=== PATIENT | male | born 1985 | race Hispanic/Latino ===

== ENCOUNTER 2018-01-05 05:45 | Emergency (ER) | payer BC ==
[2018-01-05 06:51] LABS: Absolute Monocytes 0.8 K/uL (0.1-1.3); Absolute Neutrophil 4.9 K/uL (1.8-8.0); Hematocrit 42.4 % (39.6-49.0); Lymphocytes % 32.8 % (15.3-44.8); MCH 27.6 pg (27.0-35.0); MCV 81.5 fL (80-100); MPV 8.4 fL (7.6-11.3); Monocytes % 8.8 % (3.3-12.3)
[2018-01-05] MEDS ORDERED: ONDANSETRON 4 MG/2 ML VIAL ONE (06:52)
[2018-01-05] MEDS ORDERED: MORPHINE 4 MG/ML SYR ONE (06:52)
[2018-01-05] MEDS ORDERED: NA CHLORIDE 0.9% 1,000 ML ONE (06:52)
[2018-01-05 07:07] LABS: Glomerular Filtration Rate > 60 mL/min (>60)
[2018-01-05 07:08] LABS: Bicarbonate 26 mEq/L (21-31); Glucose Level 293 mg/dL (65-120); Lipase 41 U/L (22-51); Potassium 3.9 mEq/L (3.6-5.0); Sodium Level 136 mEq/L (135-145)
[2018-01-05 07:14] LABS: ALT/SGPT 17 IU/L (10-60); AST/SGOT 15 IU/L (10-42); Albumin 3.7 g/dL (3.2-5.5); Alkaline Phosphatase 55 IU/L (42-121); Amylase Level 72 U/L (28-100); BUN Blood Urea Nitrogen 13 mg/dL (6-20); Bilirubin Direct 0.1 mg/dL (0-0.2); Bilirubin Total 0.6 mg/dL (0.3-1.2); Glomerular Filtration Rate > 90 mL/min (=/>90); Protein, Total 7.3 g/dL (6.0-8.3)
--- NOTE | 2018-01-05 08:10 | RAD REPORT ---
EXAM DESCRIPTION: CT - Stone Protocol - 01/05/2018 7:42 am CLINICAL HISTORY: Abdominal pain. Right sided pain with nausea COMPARISON: 2016 TECHNIQUE: Computed axial tomography of the abdomen pelvis was obtained without oral or IV contrast. Lack of IV and oral contrast limits evaluation of solid organs, bowel, and vessels. Coronal reformat jaime images were obtained and reviewed. All CT scans are performed using dose optimization technique as appropriate and may include automated exposure control or mA/KV adjustment according to patient size. FINDINGS: A renal calculus is not seen. An ureteral calculus is not noted. A bladder calculus is not present. A 4 centimeter fluid collection abuts the pancreatic tail and stomach. Significant peripancreatic str anding is not seen. Spleen liver, adrenals appear grossly normal. There is no evidence of diverticulitis. The appendix appears normal. A small umbilical hernia contain s fat IMPRESSION: Negative for a genitourinary calculus 4 centimeter fluid collection abutting the pancreatic tail and stomach probably represents a pseudocy st. There is no evidence of significant acute pancreatitis
--- NOTE | 2018-01-05 08:29 | ER ---
Nurse's Notes [facility] Name: Obdulio Flynn Age: 32 yrs Sex: Male : 1985 Arrival Date: 01/05/2018 Time: 05:51 Bed 16 Private MD: Evin Mccurdy V Diagnosis: Upper abdominal pain, unspecified Presentation: 01/05 06:00 Presenting complaint: Patient states: "I had right side abdominal pain that started ao about 1600 yesterday but it got worst about midnight." Patient also complains of nausea but denies vomiting or diarrhea. Transition of care: patient was not received from another setting of care. Onset of symptoms was January 04, 2018 at 16:00. Care prior to arrival: None. 06:00 Method Of Arrival: Ambulatory ao 06:00 Acuity: STAR 3 ao Triage Assessment: 06:05 General: Appears in no apparent distress. comfortable, Behavior is calm, cooperative, ao appropriate for age. Pain: Complains of pain in right side flank. EENT: No signs and/or symptoms were reported regarding the EENT system. Neuro: Level of Consciousness is awake, alert, obeys commands, Oriented to person, place, time, situation, Appropriate for age Moves all extremities. Speech is normal, Facial symmetry appears normal. Cardiovascular: Patient's skin is warm and dry. Respiratory: Airway is patent Respiratory effort is even, unlabored, Respiratory pattern is regular, symmetrical. GI: Abdomen is non-distended, Reports nausea, Pain is 3 out of 10 on a pain scale. since yesterday at 1600. : No signs and/or symptoms were reported regarding the genitourinary system. Derm: No signs and/or symptoms reported regarding the dermatologic system. Derm: Skin is intact, Skin is normal, Skin temperature is warm. Musculoskeletal: Range of motion: intact in all extremities. Historical: - Allergies: 06:05 NKA; ao - Home Meds: 06:05 fenofibrate Oral [Active]; Basaglar-insulin [Active]; Lantus subcutaneous 38 units QD ao Sub-Q [Active]; lisinopril 5 mg oral tab [Active]; Synjardy oral oral [Active]; - PMHx: 06:05 Diabetes - IDDM; Hypertension; Kidney stones; Pancreatitis; ao - PSHx: 06:05 Cholecystectomy; ao - Immunization history:: Adult Immunizations up to date. - Social history:: Smoking status: Patient uses tobacco products, denies chronic smoking, but will smoke occasionally, Patient uses alcohol, occasionally. only on a social basis. Patient/guardian denies using street drugs. Screenin:08 Abuse screen: Denies threats or abuse. Denies injuries from another. Nutritional ao screening: No deficits noted. Tuberculosis screening: No symptoms or risk factors identified. Fall Risk None identified. Assessment: 06:08 General: See triage note. ao 07:00 General: Appears in no apparent distress. comfortable, Behavior is calm, cooperative, rb1 Denies fever. Pain: Complains of pain in right flank Pain currently is 2 out of 10 on a pain scale. Neuro: Level of Consciousness is awake, alert, obeys commands, Oriented to person, place, time, situation. Cardiovascular: Capillary refill < 3 seconds is brisk in bilateral fingers. Respiratory: Airway is patent Respiratory effort is even, unlabored, Respiratory pattern is regular, symmetrical. GI: No signs and/or symptoms were reported involving the gastrointestinal system. : No signs and/or symptoms were reported regarding the genitourinary system. Derm: Skin is dry, Skin is normal, Skin temperature is warm. 08:00 Reassessment: Patient appears in no apparent distress at this time. Patient and/or rb1 family updated on plan of care and expected duration. Pain level reassessed. Patient is alert, oriented x 3, equal unlabored respirations, skin warm/dry/pink. 08:30 Reassessment: Patient appears in no apparent distress at this time. Patient and/or rb1 family updated on plan of care and expected duration. Pain level reassessed. Patient is alert, oriented x 3, equal unlabored respirations, skin warm/dry/pink. pt. tolerated PO challenge well. Patient states feeling better. Vital Signs: 06:02 BP 115 / 78; Pulse 81; Resp 16; Temp 97.2(TE); Pulse Ox 98% on R/A; Weight 113.4 kg ao (R); Height 5 ft. 9 in. (175.26 cm) (R); Pain 3/10; 07:00 BP 119 / 82; Pulse 74; Resp 17; Pulse Ox 98% on R/A; rb1 08:00 BP 113 / 71; Pulse 73; Resp 18; Pulse Ox 99% on R/A; rb1 08:46 BP 112 / 69; Pulse 80; Resp 17; Pulse Ox 99% on R/A; Pain 2/10; rb1 06:02 Body Mass Index 36.92 (113.40 kg, 175.26 cm) ao ED Course: 05:51 Patient arrived in ED. es 05:51 Evin Mccurdy MD is Private Physician. es 06:00 Grant Morris, RN is Primary Nurse. ao 06:02 Triage completed. ao 06:02 Arm band placed on right wrist. Patient placed in an exam room, Patient notified of ao wait time. 06:08 Patient has correct armband on for positive identification. Pulse ox on. NIBP on. ao 06:22 Uvaldo Chang PA is PHCP. cp 06:23 Shaji Orozco MD is Attending Physician. cp 06:40 Inserted saline lock: 22 gauge in left antecubital area, using aseptic technique. Blood mt collected. 07:06 Report given to DOT Perez. ao 07:12 Ana Tom RN is Primary Nurse. rb1 07:41 CT completed. Patient tolerated procedure well. Patient moved to CT via wheelchair. sj Patient moved back from CT. 07:42 CT Stone Protocol In Process Unspecified. EDMS 08:27 Byron Zazueta MD is Referral Physician. cp 08:47 No provider procedures requiring assistance completed. IV discontinued, intact, rb1 bleeding controlled, No redness/swelling at site. Pressure dressing applied. Administered Medications: 06:38 Drug: Zofran 4 mg Route: IVP; Site: left antecubital; ao 07:00 Follow up: Response: No adverse reaction; Nausea is decreased rb1 06:42 Drug: morphine 4 mg Route: IVP; Site: left antecubital; ao 07:00 Follow up: Response: No adverse reaction; Pain is decreased rb1 06:42 Drug: NS 0.9% 1000 ml Route: IV; Rate: 1 bolus; Site: left antecubital; ao 07:47 Follow up: IV Status: Completed infusion rb1 08:35 Drug: Promethazine 25 mg Route: IVP; Site: left antecubital; rb1 08:47 Follow up: Response: No adverse reaction rb1 Outcome: 08:28 Discharge ordered by . cp 08:47 Discharged to home ambulatory. rb1 08:47 Condition: stable 08:47 Discharge instructions given to patient, Instructed on discharge instructions, follow up and referral plans. medication usage, Demonstrated understanding of instructions, follow-up care, medications, Prescriptions given X 3. 08:47 Patient left the ED. rb1 Signatures: Dispatcher [employer] EDAlissa Lopez Susan sj Page, Corey, PA PA cp Barber, Rebecca, RN RN rb1 Grant Morris RN RN ao Thompson, [place] Corrections: (The following items were deleted from the chart) 08:51 08:48 Patient left the ED. rb1 rb1
--- NOTE | 2018-01-05 08:29 | EDPHYS ---
Physician Documentation [facility] Name: Obdulio Flynn Age: 32 yrs Sex: Male : 1985 Arrival Date: 01/05/2018 Time: 05:51 Bed 16 Private MD: Evin Mccurdy V ED Physician Shaji Orozco HPI: 01/05 06:29 This 32 yrs old Male presents to ER via Ambulatory with complaints of Flank cp Pain. 06:30 The patient presents with abdominal pain in the right upper quadrant. Onset: The cp symptoms/episode began/occurred yesterday. The symptoms radiate to the right flank. Associated signs and symptoms: Pertinent positives: nausea, Pertinent negatives: chest pain, constipation, diarrhea, vomiting. Historical: - Allergies: 06:05 NKA; ao - Home Meds: 06:05 fenofibrate Oral [Active]; Basaglar-insulin [Active]; Lantus subcutaneous 38 units QD ao Sub-Q [Active]; lisinopril 5 mg oral tab [Active]; Synjardy oral oral [Active]; - PMHx: 06:05 Diabetes - IDDM; Hypertension; Kidney stones; Pancreatitis; ao - PSHx: 06:05 Cholecystectomy; ao - Immunization history:: Adult Immunizations up to date. - Social history:: Smoking status: Patient uses tobacco products, denies chronic smoking, but will smoke occasionally, Patient uses alcohol, occasionally. only on a social basis. Patient/guardian denies using street drugs. ROS: 06:35 Constitutional: Negative for body aches, chills, fever, poor PO intake. cp 06:35 Eyes: Negative for injury, pain, redness, and discharge, ENT: Negative for injury, cp pain, and discharge, Cardiovascular: Negative for chest pain, palpitations, and edema, Respiratory: Negative for shortness of breath, cough, wheezing, and pleuritic chest pain. 06:35 Abdomen/GI: Positive for abdominal pain, nausea, of the anterior aspect of right lateral abdomen and right upper quadrant, Negative for vomiting, diarrhea, constipation, anorexia. 06:35 Back: Positive for radiated pain, of the right mid back. 06:35 : Negative for urinary symptoms, testicular pain 06:35 Skin: Negative for cellulitis, rash. 06:35 Neuro: Negative for altered mental status, headache, weakness. 06:35 All other systems are negative. Exam: 06:42 Constitutional: The patient appears in no acute distress, alert, awake, non-toxic, well cp developed, well nourished. 06:42 Head/Face: Normocephalic, atraumatic. cp 06:42 Eyes: Periorbital structures: appear normal, Conjunctiva: normal, no exudate, no injection, Sclera: no appreciated abnormality, Lids and lashes: appear normal, bilaterally. 06:42 ENT: External ear(s): are unremarkable, Nose: is normal, Mouth: Lips: moist, Oral mucosa: moist, Posterior pharynx: is normal, airway is patent, no erythema, no exudate, Voice: is normal. 06:42 Chest/axilla: Inspection: normal, Palpation: is normal, no crepitus, no tenderness. 06:42 Cardiovascular: Rate: normal, Rhythm: regular. 06:42 Respiratory: the patient does not display signs of respiratory distress, Respirations: normal, no use of accessory muscles, no retractions, no splinting, no tachypnea, labored breathing, is not present, Breath sounds: are clear throughout, no decreased breath sounds, no stridor, no wheezing. 06:42 Abdomen/GI: Inspection: abdomen appears normal, Bowel sounds: active, all quadrants, Palpation: soft, in all quadrants, moderate abdominal tenderness, in the anterior aspect of right lateral abdomen and right upper quadrant, rebound tenderness, is not appreciated, voluntary guarding, is not appreciated, involuntary guarding, is not appreciated. 06:42 Back: pain, of the right mid back, ROM is normal. 06:42 Skin: cellulitis, is not appreciated, no rash present. Vital Signs: 06:02 BP 115 / 78; Pulse 81; Resp 16; Temp 97.2(TE); Pulse Ox 98% on R/A; Weight 113.4 kg ao (R); Height 5 ft. 9 in. (175.26 cm) (R); Pain 3/10; 07:00 BP 119 / 82; Pulse 74; Resp 17; Pulse Ox 98% on R/A; rb1 08:00 BP 113 / 71; Pulse 73; Resp 18; Pulse Ox 99% on R/A; rb1 08:46 BP 112 / 69; Pulse 80; Resp 17; Pulse Ox 99% on R/A; Pain 2/10; rb1 06:02 Body Mass Index 36.92 (113.40 kg, 175.26 cm) ao MDM: 06:23 Patient medically screened. cp 07:00 Differential diagnosis: diverticulitis, gastritis, non-specific abd pain, pancreatitis, cp Peptic Ulcer Disease, Perf. Duodenal Ulcer, Perf. Gastric Ulcer, Pyelonephritis, Ureterolithiasis, urinary tract infection. 08:25 Data reviewed: vital signs, nurses notes, lab test result(s), radiologic studies, CT cp scan. 08:25 Counseling: I had a detailed discussion with the patient and/or guardian regarding: the cp historical points, exam findings, and any diagnostic results supporting the discharge/admit diagnosis, lab results, radiology results, the need for outpatient follow up, a it infrastructure architect, to return to the emergency department if symptoms worsen or persist or if there are any questions or concerns that arise at home. Response to treatment: the patient's symptoms have mildly improved after treatment, and as a result, I will discharge patient. 08:25 ED course: VSS. Discussed CT results that showed 4 cm collection of fluid near cp pancreatic tail. Will refer to GI for f/u. 01/05 06:28 Order name: Amylase, Serum; Complete Time: 07:18 cp 01/05 06:28 Order name: Basic Metabolic Panel; Complete Time: 07:18 cp 01/05 07:18 Interpretation: Normal except: GLUC 293. cp 01/05 06:28 Order name: CBC with Diff; Complete Time: 07:18 cp 01/05 08:12 Interpretation: Reviewed. cp 01/05 06:28 Order name: Creatinine for Radiology; Complete Time: 07:18 cp 01/05 06:28 Order name: Hepatic Function; Complete Time: 07:18 cp 01/05 07:18 Interpretation: Normal except: GLOB 3.6; A/G 1.0. cp 01/05 06:28 Order name: Lipase; Complete Time: 07:18 cp 01/05 08:15 Interpretation: LIP 41; Reviewed. cp 01/05 06:28 Order name: Urine Microscopic Only; Complete Time: 00:20 cp 01/05 06:28 Order name: IV Saline Lock; Complete Time: 06:43 cp 01/05 06:28 Order name: CT Stone Protocol; Complete Time: 08:11 cp 01/05 08:08 Order name: Urine Dipstick--Ancillary (enter results); Complete Time: 00:20 bd 01/05 06:28 Order name: Labs collected and sent; Complete Time: 06:43 cp 01/05 06:28 Order name: Urine Dipstick-Ancillary (obtain specimen); Complete Time: 08:51 cp 01/05 08:15 Order name: PO challenge; Complete Time: 08:49 cp Administered Medications: 06:38 Drug: Zofran 4 mg Route: IVP; Site: left antecubital; ao 07:00 Follow up: Response: No adverse reaction; Nausea is decreased rb1 06:42 Drug: morphine 4 mg Route: IVP; Site: left antecubital; ao 07:00 Follow up: Response: No adverse reaction; Pain is decreased rb1 06:42 Drug: NS 0.9% 1000 ml Route: IV; Rate: 1 bolus; Site: left antecubital; ao 07:47 Follow up: IV Status: Completed infusion rb1 08:35 Drug: Promethazine 25 mg Route: IVP; Site: left antecubital; rb1 08:47 Follow up: Response: No adverse reaction rb1 Disposition: 13:21 Co-signature as Attending Physician, Shaji Orozco MD. Disposition: 01/05/18 08:28 Discharged to Home. Impression: Upper abdominal pain, unspecified. - Condition is Stable. - Discharge Instructions: Abdominal Pain, Adult. - Prescriptions for Protonix 40 mg Oral Tablet - take 1 tablet by ORAL route once daily; 30 tablet. Zofran 4 mg Oral Tablet - take 1 tablet by ORAL route every 12 hours As needed; 20 tablet. Tramadol 50 mg Oral Tablet - take 1 tablet by ORAL route every 8 hours as needed; 15 tablet. - Medication Reconciliation Form, Thank You Letter, Antibiotic Education, Prescription Opioid Use form. - Follow up: Byron Zazueta MD; When: 1 - 2 days; Reason: Recheck today's complaints. - Problem is new. - Symptoms have improved. Signatures: Dispatcher [employer] EDMS Uvaldo Chang PA PA cp Barber, Rebecca, RN RN rb1 Grant Morris RN Shaji Lawson MD MD
[2018-01-05 08:34] LABS: Urine Bacteria NONE SEEN /HPF (NONE SEEN); Urine Culture Reflex Order NOT NEEDED; Urine RBC <5 /HPF (NONE SEEN)
[2018-01-05] MEDS ORDERED: PROMETHAZINE 25 MG/ML VIAL ONE (08:56)
[2018-01-05 09:01] VITALS: TEMP 97.2
[2018-01-05 09:03] VITALS: O2SAT 99
[2018-01-05 09:05] VITALS: BP 112/69
[2018-01-05 09:36] LABS: Urine Blood NEGATIVE (NEG); Urine Glucose 2+ (NEG); Urine Protein NEGATIVE (NEG); Urine Specific Gravity 1.025 (1.005-1.030); Urine pH 5.5 (5.0-7.0)
== END 2018-01-05 08:48 | disposition home or self-care (01) ==
LOC: ER 05:45
DX: R10.10 Upper abdominal pain, unspecified (principal); I10 Essential (primary) hypertension; E11.9 Type 2 diabetes mellitus without complications; Z79.4 Long term (current) use of insulin
CPT/HCPCS: 36415; 74176; 76377; 80048; 80076; 81003; 81015; 82150; 83690; 85025; 96361; 96374; 96375; 99284; J2405; J2550; J7030

== ENCOUNTER 2018-01-14 08:56 | Emergency (ER) | payer BC ==
[2018-01-14 09:44] LABS: Absolute Lymphocytes (CBC) 2.2 K/uL (0.7-4.9); Absolute Monocytes 0.7 K/uL (0.1-1.3); Absolute Neutrophil 4.8 K/uL (1.8-8.0); Basophils % 0.9 % (0-1.3); Eosinophils % 2.5 % (0-4.4); Lymphocytes % 27.5 % (15.3-44.8); MCH 27.4 pg (27.0-35.0); MCV 81.8 fL (80-100); MPV 8.7 fL (7.6-11.3); Monocytes % 8.2 % (3.3-12.3); RBC Red Blood Cell Count 5.87 M/uL (4.33-5.43)
[2018-01-14 09:52] LABS: Glucose Level 285 mg/dL (65-120); Lipase 15 U/L (22-51)
[2018-01-14 09:58] LABS: Albumin 4.1 g/dL (3.2-5.5); Alkaline Phosphatase 58 IU/L (42-121); BUN Blood Urea Nitrogen 15 mg/dL (6-20); Bilirubin Direct 0.1 mg/dL (0-0.2); Bilirubin Total 0.5 mg/dL (0.3-1.2); Protein, Total 8.2 g/dL (6.0-8.3)
[2018-01-14 10:01] LABS: ALT/SGPT 15 IU/L (10-60); AST/SGOT 18 IU/L (10-42); Amylase Level 90 U/L (28-100); Bicarbonate 28 mEq/L (21-31); Potassium 4.3 mEq/L (3.6-5.0); Sodium Level 132 mEq/L (135-145)
[2018-01-14] MEDS ORDERED: NA CHLORIDE 0.9% 1,000 ML ONE (10:04)
[2018-01-14] MEDS ORDERED: PANTOPRAZOLE 40 MG INJ ONE (10:04)
[2018-01-14] MEDS ORDERED: ONDANSETRON 4 MG/2 ML VIAL ONE (10:04)
--- NOTE | 2018-01-14 10:25 | ER ---
Nurse's Notes [facility] Name: Obdulio Flynn Age: 32 yrs Sex: Male : 1985 Arrival Date: 01/14/2018 Time: 08:59 Bed 20 Private MD: Evin Mccurdy V Diagnosis: Upper abdominal pain, unspecified;Gastro-esophageal reflux disease Presentation: 01/14 09:06 Presenting complaint: Patient states: Intermittent sharp upper abdominal pain and hb nausea x 3 days. Hx pancreatitis. Had labs drawn here this morning for Dr. Wilson. Transition of care: patient was not received from another setting of care. Onset of symptoms is unknown. Care prior to arrival: None. 09:06 Method Of Arrival: Ambulatory hb 09:06 Acuity: STAR 3 hb Historical: - Allergies: 09:09 NKA; hb - Home Meds: 09:09 Basaglar-insulin [Active]; Lantus subcutaneous 38 units QD Sub-Q [Active]; fenofibrate hb Oral [Active]; Synjardy Oral [Active]; lisinopril 5 mg Oral tab [Active]; - PMHx: 09:09 Diabetes - IDDM; Hypertension; Kidney stones; Pancreatitis; hb - PSHx: 09:09 Cholecystectomy; Kidney stents; hb - Immunization history:: Adult Immunizations up to date. - Social history:: Smoking status: Patient/guardian denies using tobacco. Screenin:05 Abuse screen: Denies threats or abuse. Denies injuries from another. Nutritional ss screening: No deficits noted. Tuberculosis screening: Never had TB. Fall Risk None identified. Assessment: 10:05 General: Appears in no apparent distress. comfortable, Behavior is calm, cooperative, ss Denies fever, feeling ill, fatigue, chills. Pain: Complains of pain in left upper quadrant and right upper quadrant and epigastric area Pain currently is 4 out of 10 on a pain scale. Quality of pain is described as burning, Is intermittent. Neuro: Level of Consciousness is awake, alert, obeys commands, Oriented to person, place, time, situation. Cardiovascular: Capillary refill < 3 seconds is brisk in bilateral fingers Patient's skin is warm and dry. Respiratory: Airway is patent Respiratory effort is even, unlabored, Respiratory pattern is regular, symmetrical. GI: Bowel sounds present X 4 quads. Abd is soft and non tender X 4 quads. Patient currently denies diarrhea, vomiting. : No signs and/or symptoms were reported regarding the genitourinary system. EENT: Oral mucosa is moist. Throat is clear. Derm: Skin is intact, is healthy with good turgor, Skin is dry, Skin is pink, warm \T\ dry. Musculoskeletal: Circulation, motion, and sensation intact. Range of motion: intact in all extremities. Vital Signs: 09:06 BP 123 / 91; Pulse 86; Resp 16; Temp 98(O); Pulse Ox 100% on R/A; Pain 4/10; hb 10:32 BP 126 / 86; Pulse 82; Resp 16; Pulse Ox 99% on R/A; Pain 2/10; hb ED Course: 08:59 Patient arrived in ED. as 08:59 Evin Mccurdy MD is Private Physician. as 09:02 Ramonita Colmenares FNP-C [facility]. kb 09:02 Italo Saxena MD is Attending Physician. kb 09:06 Arm band placed on right wrist. hb 09:08 Triage completed. hb 09:35 Initial lab(s) drawn, by me, sent to lab. Inserted saline lock: 20 gauge in right ag antecubital area, using aseptic technique. Blood collected. 10:05 Patient has correct armband on for positive identification. Bed in low position. Call ss light in reach. 10:12 Bambi Bustillos, RN is Primary Nurse. ss 10:30 No provider procedures requiring assistance completed. ss 10:33 intact, bleeding controlled, No redness/swelling at site. Pressure dressing applied. hb Administered Medications: 10:08 Drug: NS 0.9% 1000 ml Route: IV; Rate: 1000 ml; Site: right antecubital; ss 10:30 Follow up: IV Status: IV converted to saline lock ss 10:10 Drug: Zofran 4 mg Route: IVP; Site: right antecubital; ss 15:48 Follow up: Response: No adverse reaction ss 10:12 Drug: ProTONIX 40 mg Route: IVP; Site: right antecubital; ss 10:45 Follow up: Response: No adverse reaction ss Point of Care Testing: Blood Glucose: 09:25 Blood Glucose: 264 mg/dL; ss Ranges: Outcome: 10:24 Discharge ordered by . kb 10:33 Discharged to home ambulatory. hb 10:33 Condition: stable 10:33 Discharge instructions given to patient, Instructed on discharge instructions, follow up and referral plans. medication usage, Demonstrated understanding of instructions, follow-up care, medications, Prescriptions given X 2. 10:33 Patient left the ED. hb Signatures: Ramonita Colmenares, CONDENSER TESTER-C TJ-Kaitlyn Mejia Shelby, DOT RN Anne-Marie Ivey Heather, RN RN hb
--- NOTE | 2018-01-14 10:25 | EDPHYS ---
Physician Documentation [facility] Name: Obdulio Flynn Age: 32 yrs Sex: Male : 1985 Arrival Date: 01/14/2018 Time: 08:59 Bed 20 Private MD: Evin Mccurdy V ED Physician Italo Saxena HPI: 01/14 09:34 This 32 yrs old Male presents to ER via Ambulatory with complaints of kb Abdominal Pain, Nausea, Dizziness. 09:37 The patient presents with abdominal pain in the upper abdomen. Onset: The kb symptoms/episode began/occurred 3 day(s) ago. The symptoms do not radiate. Associated signs and symptoms: Pertinent positives: nausea. The symptoms are described as achy. Modifying factors: The symptoms are alleviated by nothing, the symptoms are aggravated by pressure. Severity of pain: At its worst the pain was mild moderate in the emergency department the pain is unchanged. The patient has experienced a previous episode. The patient has been recently seen by a physician: Dr. Wilson 2 day(s) ago, with similar presenting complaints, lab tests were done. Historical: - Allergies: 09:09 NKA; hb - Home Meds: 09:09 Basaglar-insulin [Active]; Lantus subcutaneous 38 units QD Sub-Q [Active]; fenofibrate hb Oral [Active]; Synjardy Oral [Active]; lisinopril 5 mg Oral tab [Active]; - PMHx: 09:09 Diabetes - IDDM; Hypertension; Kidney stones; Pancreatitis; hb - PSHx: 09:09 Cholecystectomy; Kidney stents; hb - Immunization history:: Adult Immunizations up to date. - Social history:: Smoking status: Patient/guardian denies using tobacco. ROS: 09:35 Constitutional: Negative for fever, chills, and weight loss, Cardiovascular: Negative kb for chest pain, palpitations, and edema, Respiratory: Negative for shortness of breath, cough, wheezing, and pleuritic chest pain, Back: Negative for injury and pain, : Negative for injury, bleeding, discharge, and swelling, MS/Extremity: Negative for injury and deformity, Skin: Negative for injury, rash, and discoloration, Neuro: Negative for headache, weakness, numbness, tingling, and seizure. 09:36 Abdomen/GI: Positive for abdominal pain, nausea, Negative for vomiting, diarrhea, kb constipation, abdominal cramps, abdominal distension, anorexia. Exam: 09:35 Constitutional: This is a well developed, well nourished patient who is awake, alert, kb and in no acute distress. Head/Face: Normocephalic, atraumatic. Chest/axilla: Normal chest wall appearance and motion. Nontender with no deformity. No lesions are appreciated. Cardiovascular: Regular rate and rhythm with a normal S1 and S2. No gallops, murmurs, or rubs. Normal PMI, no JVD. No pulse deficits. Respiratory: Lungs have equal breath sounds bilaterally, clear to auscultation and percussion. No rales, rhonchi or wheezes noted. No increased work of breathing, no retractions or nasal flaring. Back: No spinal tenderness. No costovertebral tenderness. Full range of motion. Skin: Warm, dry with normal turgor. Normal color with no rashes, no lesions, and no evidence of cellulitis. MS/ Extremity: Pulses equal, no cyanosis. Neurovascular intact. Full, normal range of motion. Neuro: Awake and alert, GCS 15, oriented to person, place, time, and situation. Cranial nerves II-XII grossly intact. Motor strength 5/5 in all extremities. Sensory grossly intact. Cerebellar exam normal. Normal gait. 09:36 Abdomen/GI: Inspection: abdomen appears normal, Bowel sounds: normal, in all quadrants, kb Palpation: soft, in all quadrants, moderate abdominal tenderness, in the epigastric area, right upper quadrant and left upper quadrant. Vital Signs: 09:06 BP 123 / 91; Pulse 86; Resp 16; Temp 98(O); Pulse Ox 100% on R/A; Pain 4/10; hb 10:32 BP 126 / 86; Pulse 82; Resp 16; Pulse Ox 99% on R/A; Pain 2/10; hb MDM: 09:05 Patient medically screened. kb 09:35 Data reviewed: vital signs, nurses notes. Data interpreted: Pulse oximetry: on room air kb is 100 %. Interpretation: normal. 10:20 Counseling: I had a detailed discussion with the patient and/or guardian regarding: the kb historical points, exam findings, and any diagnostic results supporting the discharge/admit diagnosis, lab results, the need for outpatient follow up, a family practitioner, a senior technical architect, to return to the emergency department if symptoms worsen or persist or if there are any questions or concerns that arise at home. 01/14 09:15 Order name: Amylase, Serum; Complete Time: 10:08 kb 01/14 09:15 Order name: Basic Metabolic Panel; Complete Time: 10:08 kb 01/14 09:15 Order name: CBC with Diff; Complete Time: 09:50 kb 01/14 09:15 Order name: Hepatic Function; Complete Time: 10:08 kb 01/14 09:15 Order name: Lipase; Complete Time: 10:08 kb 01/14 09:15 Order name: IV Saline Lock; Complete Time: 10:13 kb 01/14 09:15 Order name: Labs collected and sent; Complete Time: 10:13 kb Administered Medications: 10:08 Drug: NS 0.9% 1000 ml Route: IV; Rate: 1000 ml; Site: right antecubital; ss 10:30 Follow up: IV Status: IV converted to saline lock ss 10:10 Drug: Zofran 4 mg Route: IVP; Site: right antecubital; ss 15:48 Follow up: Response: No adverse reaction ss 10:12 Drug: ProTONIX 40 mg Route: IVP; Site: right antecubital; ss 10:45 Follow up: Response: No adverse reaction ss Point of Care Testing: Blood Glucose: 09:25 Blood Glucose: 264 mg/dL; ss Ranges: Critical Glucose Levels:Adult <50 mg/dl or >400 mg/dl <40 mg/dl or >180 mg/dl Disposition: 01/15 07:53 Co-signature as Attending Physician, Italo Saxena MD I agree with the assessment and wa plan of care. Disposition: 01/14/18 10:24 Discharged to Home. Impression: Upper abdominal pain, unspecified, Gastro-esophageal reflux disease. - Condition is Stable. - Discharge Instructions: Gastroesophageal Reflux Disease, Adult, Abdominal Pain, Adult, [id number]. - Prescriptions for Protonix 40 mg Oral Tablet - take 1 tablet by ORAL route once daily; 30 tablet. Zofran 4 mg Oral Tablet - take 1 tablet by ORAL route every 6 hours As needed; 20 tablet. - Medication Reconciliation Form, Thank You Letter, Antibiotic Education, Prescription Opioid Use form. - Follow up: Emergency Department; When: As needed; Reason: Worsening of condition. Follow up: Private Physician; When: 2 - 3 days; Reason: Recheck today's complaints, Continuance of care, Re-evaluation by your physician. Signatures: Dispatcher [employer] EDMS Ramonita Colmenares, FLAKO FILAMENT CUTTER-Bambi Weiss RN RN ss Baxter, Heather, RN RN Italo Saxena MD MD wa Corrections: (The following items were deleted from the chart) 01/14 09:36 09:35 Constitutional: Negative for fever, chills, and weight loss, Cardiovascular: kb Negative for chest pain, palpitations, and edema, Respiratory: Negative for shortness of breath, cough, wheezing, and pleuritic chest pain, Back: Negative for injury and pain, : Negative for injury, bleeding, discharge, and swelling, MS/Extremity: Negative for injury and deformity, kb 09:36 09:35 Abdomen/GI: Positive for abdominal pain, nausea and vomiting, Negative for kb diarrhea, constipation, abdominal cramps, abdominal distension, anorexia, kb 09:36 09:35 Neuro: Positive for dizziness, Negative for altered mental status, gait kb disturbance, headache, hearing loss, loss of consciousness, numbness, seizure activity, speech changes, syncope, near syncope, tingling, tinnitus, tremor, visual changes, weakness, kb 09:37 09:35 Head/Face: Normocephalic, atraumatic. Chest/axilla: Normal chest wall appearance kb and motion. Nontender with no deformity. No lesions are appreciated. Cardiovascular: Regular rate and rhythm with a normal S1 and S2. No gallops, murmurs, or rubs. Normal PMI, no JVD. No pulse deficits. Respiratory: Lungs have equal breath sounds bilaterally, clear to auscultation and percussion. No rales, rhonchi or wheezes noted. No increased work of breathing, no retractions or nasal flaring. Abdomen/GI: Soft, non-tender, with normal bowel sounds. No distension or tympany. No guarding or rebound. No evidence of tenderness throughout. Back: No spinal tenderness. No costovertebral tenderness. Full range of motion. Skin: Warm, dry with normal turgor. Normal color with no rashes, no lesions, and no evidence of cellulitis. MS/ Extremity: Pulses equal, no cyanosis. Neurovascular intact. Full, normal range of motion. Neuro: Awake and alert, GCS 15, oriented to person, place, time, and situation. Cranial nerves II-XII grossly intact. Motor strength 5/5 in all extremities. Sensory grossly intact. Cerebellar exam normal. Normal gait. kb 09:37 09:35 Constitutional: The patient appears alert, awake, pale, kb kb
[2018-01-14 10:44] VITALS: BP 126/86; O2SAT 99
[2018-01-14 10:45] VITALS: TEMP 98
== END 2018-01-14 10:33 | disposition home or self-care (01) ==
LOC: ER 08:56
DX: K21.9 Gastro-esophageal reflux disease without esophagitis (principal); I10 Essential (primary) hypertension; E11.9 Type 2 diabetes mellitus without complications; Z79.4 Long term (current) use of insulin
CPT/HCPCS: 36415; 80048; 80076; 82150; 82962; 83690; 85025; 96374; 96375; 99284; C9113; J2405; J7030

== ENCOUNTER 2018-02-16 22:57 | Emergency (ER) | payer BC ==
--- NOTE | 2018-02-16 23:40 | ER ---
Nurse's Notes [facility] Name: Obdulio Flynn Age: 33 yrs Sex: Male : 1985 Arrival Date: 02/16/2018 Time: 23:01 Bed 6 Private MD: Evin Mccurdy V Diagnosis: Impetigo, unspecified;Rash and other nonspecific skin eruption Presentation: 02/16 23:10 Presenting complaint: Patient states: he has a rash under both arms worse on the right bb which is getting more painful pt is diabetic. Transition of care: patient was not received from another setting of care. Onset of symptoms was February 16, 2018. Initial Sepsis Screen: Does the patient meet any 2 criteria? No. Patient's initial sepsis screen is negative. Does the patient have a suspected source of infection? No. Patient's initial sepsis screen is negative. Care prior to arrival: None. 23:10 Method Of Arrival: Ambulatory bb 23:10 Acuity: STAR 4 bb Historical: - Allergies: 23:13 NKA; bb - Home Meds: 23:13 Basaglar-insulin [Active]; fenofibrate 150 mg oral cap 1 cap once daily [Active]; bb lisinopril 5 mg Oral tab 1 tab once daily [Active]; Synjardy 12.5-1,000 mg oral tab 1 tab daily [Active]; - PMHx: 23:13 Diabetes - IDDM; Hypertension; Kidney stones; Pancreatitis; bb - PSHx: 23:13 Cholecystectomy; Kidney stents; bb - Immunization history:: Adult Immunizations up to date. - Social history:: Smoking status: Patient uses tobacco products, denies chronic smoking, but will smoke occasionally, Patient uses alcohol, occasionally. Screenin:38 Abuse screen: Denies threats or abuse. Nutritional screening: No deficits noted. jd3 Tuberculosis screening: No symptoms or risk factors identified. Fall Risk None identified. Assessment: 23:31 General: Appears in no apparent distress. uncomfortable, Behavior is calm, cooperative, jd3 appropriate for age. Pain: Complains of pain in right axilla and left axilla Pain currently is 9 out of 10 on a pain scale. Quality of pain is described as sharp, tender, stinging, Pain began 2-3 days ago. Is continuous, Aggravated by repositioning. Neuro: Level of Consciousness is awake, alert, obeys commands, Oriented to person, place, time, situation. Cardiovascular: Heart tones S1 S2 present Capillary refill < 3 seconds Patient's skin is warm and dry. Respiratory: Airway is patent Respiratory effort is even, unlabored, Respiratory pattern is regular, symmetrical, Breath sounds are clear bilaterally. GI: Abdomen is round Bowel sounds present X 4 quads. Abd is soft and non tender X 4 quads. Reports nausea. : No signs and/or symptoms were reported regarding the genitourinary system. EENT: No signs and/or symptoms were reported regarding the EENT system. Derm: Skin is intact, Skin is dry, Skin is normal, Skin temperature is warm Wound noted right axilla and left axilla Wound is silver dollar sized area of raised, red, painful tissue under both arms. Musculoskeletal: Circulation, motion, and sensation intact. Range of motion: intact in all extremities. 23:54 Reassessment: Patient appears in no apparent distress at this time. Patient and/or jd3 family updated on plan of care and expected duration. Pain level reassessed. Patient is alert, oriented x 3, equal unlabored respirations, skin warm/dry/pink. pt waiting for shot time before discharge. 02/17 00:07 Reassessment: Patient appears in no apparent distress at this time. Patient and/or jd3 family updated on plan of care and expected duration. Pain level reassessed. Patient is alert, oriented x 3, equal unlabored respirations, skin warm/dry/pink. pt reported understanding of discharge instructions, even and steady gait upon discharge. Vital Signs: 02/16 23:13 BP 120 / 88; Pulse 93; Resp 18 S; Temp 98.2(O); Pulse Ox 99% on R/A; Weight 115.67 kg bb (R); Height 5 ft. 9 in. (175.26 cm) (R); Pain 9/10; 23:55 BP 119 / 81; Pulse 75; Resp 18 S; Pulse Ox 100% on R/A; jd3 23:13 Body Mass Index 37.66 (115.67 kg, 175.26 cm) bb ED Course: 23:01 Patient arrived in ED. es 23:01 Evin Mccurdy MD is Private Physician. es 23:11 Triage completed. bb 23:11 Vanessa Amin FNP-C is PHCP. snw 23:11 Shaji Orozco MD is Attending Physician. snw 23:13 Arm band placed on. bb 23:29 Marvin Dave, RN is Primary Nurse. mg2 23:30 Primary Nurse role handed off by Marvin Dvae, DOT jd3 23:30 Vishnu Swenson, RN is Primary Nurse. jd3 23:38 Patient has correct armband on for positive identification. Bed in low position. Call j light in reach. Side rails up X 1. 23:40 Evin Mccurdy MD is Referral Physician. snw 23:54 No provider procedures requiring assistance completed. Patient did not have IV access jd3 during this emergency room visit. Administered Medications: 23:49 Drug: Rocephin (cefTRIAXone) 1 grams Route: IM; Site: right gluteus; mg2 02/17 00:08 Follow up: Response: No adverse reaction jd3 02/16 23:49 Drug: Doxycycline 100 mg Route: PO; mg2 23:53 Follow up: Response: Medication administered at discharge. jd3 23:52 Drug: Hibiclens 4 % 1 application Route: Topical; Site: wound; jd3 23:54 Follow up: Response: Medication administered at discharge. jd3 Outcome: 23:40 [facility] 02/17 00:06 Discharged to home ambulatory. jd3 Condition: stable Discharge instructions given to patient, Instructed on discharge instructions, follow up and referral plans. medication usage, Demonstrated understanding of instructions, follow-up care, medications, Prescriptions given X 1. 00:08 Patient left the ED. jd3 Signatures: Vanessa Amin FNP-C FRUIT PRESERVER-Csnw Alissa Teresa Brenda RN RN bb Vishnu Swenson, DOT RN jd3 Marvin Dave, DOT RN mg2
--- NOTE | 2018-02-16 23:41 | EDPHYS ---
Physician Documentation [facility] Name: Obdulio Flynn Age: 33 yrs Sex: Male : 1985 Arrival Date: 02/16/2018 Time: 23:01 Bed 6 Private MD: Evin Mcucrdy V ED Physician Shaji Orozco HPI: 02/16 23:49 This 33 yrs old Male presents to ER via Ambulatory with complaints of Rash. snw 23:49 The patient's rash thought to be caused by Dermatitis. The rash is located on the right snw axilla and left axilla. The rash can be described as macular, papular, pustular, vesicular. Onset: The symptoms/episode began/occurred suddenly, 3 day(s) ago, and became persistent. Associated signs and symptoms: Pertinent positives: itching, Pain. Severity of symptoms: At their worst the symptoms were mild moderate. The patient has not experienced similar symptoms in the past. +IDDM. Historical: - Allergies: 23:13 NKA; bb - Home Meds: 23:13 Basaglar-insulin [Active]; fenofibrate 150 mg oral cap 1 cap once daily [Active]; bb lisinopril 5 mg Oral tab 1 tab once daily [Active]; Synjardy 12.5-1,000 mg oral tab 1 tab daily [Active]; - PMHx: 23:13 Diabetes - IDDM; Hypertension; Kidney stones; Pancreatitis; bb - PSHx: 23:13 Cholecystectomy; Kidney stents; bb - Immunization history:: Adult Immunizations up to date. - Social history:: Smoking status: Patient uses tobacco products, denies chronic smoking, but will smoke occasionally, Patient uses alcohol, occasionally. ROS: 23:49 Constitutional: Negative for fever, chills, and weight loss, Eyes: Negative for injury, snw pain, redness, and discharge, ENT: Negative for injury, pain, and discharge, Neck: Negative for injury, pain, and swelling, Cardiovascular: Negative for chest pain, palpitations, and edema, Respiratory: Negative for shortness of breath, cough, wheezing, and pleuritic chest pain, Abdomen/GI: Negative for abdominal pain, nausea, vomiting, diarrhea, and constipation, Back: Negative for injury and pain, : Negative for injury, bleeding, discharge, and swelling, MS/Extremity: Negative for injury and deformity, Neuro: Negative for headache, weakness, numbness, tingling, and seizure. 23:49 Skin: Positive for rash, of the right axilla and left axilla. Exam: 23:38 Constitutional: This is a well developed, well nourished patient who is awake, alert, snw and in no acute distress. Head/Face: Normocephalic, atraumatic. Eyes: Pupils equal round and reactive to light, extra-ocular motions intact. Lids and lashes normal. Conjunctiva and sclera are non-icteric and not injected. Cornea within normal limits. Periorbital areas with no swelling, redness, or edema. ENT: Nares patent. No nasal discharge, no septal abnormalities noted. Tympanic membranes are normal and external auditory canals are clear. Oropharynx with no redness, swelling, or masses, exudates, or evidence of obstruction, uvula midline. Mucous membranes moist. Neck: Trachea midline, no thyromegaly or masses palpated, and no cervical lymphadenopathy. Supple, full range of motion without nuchal rigidity, or vertebral point tenderness. No Meningismus. Chest/axilla: Normal chest wall appearance and motion. Nontender with no deformity. No lesions are appreciated. Cardiovascular: Regular rate and rhythm with a normal S1 and S2. No gallops, murmurs, or rubs. Normal PMI, no JVD. No pulse deficits. Respiratory: Lungs have equal breath sounds bilaterally, clear to auscultation and percussion. No rales, rhonchi or wheezes noted. No increased work of breathing, no retractions or nasal flaring. Abdomen/GI: Soft, non-tender, with normal bowel sounds. No distension or tympany. No guarding or rebound. No evidence of tenderness throughout. Back: No spinal tenderness. No costovertebral tenderness. Full range of motion. MS/ Extremity: Pulses equal, no cyanosis. Neurovascular intact. Full, normal range of motion. Neuro: Awake and alert, GCS 15, oriented to person, place, time, and situation. Cranial nerves II-XII grossly intact. Motor strength 5/5 in all extremities. Sensory grossly intact. Cerebellar exam normal. Normal gait. Psych: Awake, alert, with orientation to person, place and time. Behavior, mood, and affect are within normal limits. 23:38 Skin: Appearance: normal except for affected area, open sores in bilateral axillary spaces. no bleeding, tender, honey colored crusting. Vital Signs: 23:13 BP 120 / 88; Pulse 93; Resp 18 S; Temp 98.2(O); Pulse Ox 99% on R/A; Weight 115.67 kg bb (R); Height 5 ft. 9 in. (175.26 cm) (R); Pain 9/10; 23:55 BP 119 / 81; Pulse 75; Resp 18 S; Pulse Ox 100% on R/A; jd3 23:13 Body Mass Index 37.66 (115.67 kg, 175.26 cm) bb MDM: 23:34 Patient medically screened. snw 23:49 Data reviewed: vital signs, nurses notes. Data interpreted: Pulse oximetry: on room air snw is 99 %. Interpretation: normal. Counseling: I had a detailed discussion with the patient and/or guardian regarding: the historical points, exam findings, and any diagnostic results supporting the discharge/admit diagnosis, the presence of at least one elevated blood pressure reading (>120/80) during this emergency department visit, the need for outpatient follow up, to return to the emergency department if symptoms worsen or persist or if there are any questions or concerns that arise at home. Special discussion: I have referred the patient to see his PCP for further evaluation of high blood pressure. Based on the history and exam findings, there is no indication for further emergent testing or inpatient evaluation. I discussed with the patient/guardian the need to see the transverse abdominal muscle surgeon for further evaluation of the symptoms. I discussed with the patient/guardian the need to see the primary care provider for further evaluation of the symptoms. Administered Medications: 23:49 Drug: Rocephin (cefTRIAXone) 1 grams Route: IM; Site: right gluteus; mg2 02/17 00:08 Follow up: Response: No adverse reaction jd3 02/16 23:49 Drug: Doxycycline 100 mg Route: PO; mg2 23:53 Follow up: Response: Medication administered at discharge. jd3 23:52 Drug: Hibiclens 4 % 1 application Route: Topical; Site: wound; jd3 23:54 Follow up: Response: Medication administered at discharge. jd3 Disposition: 02/17 06:29 Co-signature as Attending Physician, Shaji Orozco MD. gs Disposition: 02/16/18 23:40 Discharged to Home. Impression: Impetigo, unspecified, Rash and other nonspecific skin eruption. - Condition is Stable. - Discharge Instructions: Diabetes and Sick Day Management, Impetigo, Pediatric, Rash. - Prescriptions for Doxycycline Hyclate 100 mg Oral Tablet - take 1 tablet by ORAL route every 12 hours; 20 tablet. - Medication Reconciliation Form, Thank You Letter, Antibiotic Education, Prescription Opioid Use form. - Follow up: Evin Mcucrdy MD; When: 2 - 3 days; Reason: Recheck today's complaints, Continuance of care, Re-evaluation by your physician. Follow up: Emergency Department; When: As needed; Reason: Worsening of condition. Signatures: Vanessa Amin, GIZZARD PEELER-C GIZZARD PEELER-Csnw Merline Cochran, RN RN bb Shaji Orozco MD MD Vishnu Swenson RN RN jMarvin Douglas RN RN mg2 Corrections: (The following items were deleted from the chart) 00:08 02/16 23:40 02/16/2018 23:40 Discharged to Home. Impression: Impetigo, unspecified; jd3 Rash and other nonspecific skin eruption. Condition is Stable. Forms are Medication Reconciliation Form, Thank You Letter, Antibiotic Education, Prescription Opioid Use. Follow up: Evin Mccurdy; When: 2 - 3 days; Reason: Recheck today's complaints, Continuance of care, Re-evaluation by your physician. Follow up: Emergency Department; When: As needed; Reason: Worsening of condition. snw
[2018-02-16] MEDS ORDERED: CEFTRIAXONE 1000 MG/VIAL ONE (23:42)
[2018-02-16] MEDS ORDERED: DOXYCYCLINE 100 MG CAP PO ONE (23:42)
[2018-02-17 00:49] VITALS: TEMP 98.2
[2018-02-17 00:50] VITALS: BP 119/81; O2SAT 100
== END 2018-02-17 00:08 | disposition home or self-care (01) ==
LOC: ER 22:57
DX: L01.00 Impetigo, unspecified (principal)
CPT/HCPCS: 96372; 99283

== ENCOUNTER 2019-03-21 18:05 | Emergency (ER) | payer BC, SELFPAY ==
--- OUTSIDE RECORDS SUMMARY | 2019-03-21 18:34 | XMS REPORT | Clinical Summary ---
:1985 Author Organization [facility] Address [address] [place] [address] Care Team Providers Name Role Phone Evin Mccurdy MD Primary Care Provider Allergies No Known Allergies Medications Medication Sig Dispensed Refills Start Date End Date Status INSULIN Inject 50 Units 0 Active GLARGINE,HUM.REC.ANLOG under the skin (BASAGLAR KWIKPEN U-100 nightly. INSULIN SUBQ) empagliflozin-metformin Take 1,000 mg by 0 Active (SYNJARDY) 5-1,000 mg mouth daily. tablet lisinopril Take 5 mg by 0 Active (PRINIVIL,ZESTRIL) 5 mg mouth daily. tablet fenofibrate (TRICOR) Take 145 mg by 0 Active 145 MG tablet mouth daily. Active Problems Problem Noted Date Chest pain 12/07/2017 Family History Relation Name Status Comments Father Alive Mother Alive Social History Tobacco Use Types Packs/Day Years Used Date Light Tobacco Smoker Smokeless Tobacco: Never Used Alcohol Use Drinks/Week oz/Week Comments Yes occassional Sex Assigned at Date Recorded Not on file Job Start Date Occupation Industry Not on file Not on file Not on file Travel History Travel Start Travel End No recent travel history available. Last Filed Vital Signs Not on file Plan of Treatment Health Maintenance Due Date Last Done Comments INFLUENZA VACCINE 05/05/2019 Results Not on fileafter 03/20/2018 Advance Directives Patient has advance care planning documents on file. For more information, please contact:Jeffy Millard[address] [place] [address]
--- NOTE | 2019-03-21 19:48 | RAD REPORT ---
EXAM DESCRIPTION: RAD - Chest Single View - 03/21/2019 7:40 pm CLINICAL HISTORY: CHEST PAIN Chest pain. COMPARISON: Chest Single View dated 12/13/2017; Chest Single View dated 11/28/2017; Abdomen 1 View ([facility]) dated 04/16/2016; Chest Single View dated 02/13/2016 FINDINGS: Portable technique limits examination quality. The lungs are grossly clear. The heart is normal in size. No displaced fractures. IMPRESSION: No acute intrathoracic process suspected.
[2019-03-21] MEDS ORDERED: KETOROLAC 30 MG/ML INJ ONE (20:35)
[2019-03-21] MEDS ORDERED: ASPIRIN 81 MG CHEWABLE TABLET ONE (20:35)
[2019-03-21 20:39] LABS: Absolute Lymphocytes (CBC) 2.9 K/uL (0.7-4.9); Eosinophils % 4.2 % (0-4.4); Lymphocytes % 33.6 % (15.3-44.8); MPV 9.4 fL (7.6-11.3); Monocytes % 6.9 % (3.3-12.3); RBC Red Blood Cell Count 5.92 M/uL (4.33-5.43)
[2019-03-21 20:40] LABS: Protime INR 0.96
[2019-03-21 21:27] LABS: ALT/SGPT 20 U/L (12-78); AST/SGOT 10 U/L (15-37); Albumin 3.8 g/dL (3.4-5.0); Alkaline Phosphatase 83 U/L (45-117); BUN Blood Urea Nitrogen 13 mg/dL (7-18); Bicarbonate 25 mmol/L (21-32); Bilirubin Direct < 0.1 mg/dL (0-0.2); Bilirubin Total 0.4 mg/dL (0.2-1.0); Glucose Level 316 mg/dL (74-106); Magnesium 2.1 mg/dL (1.8-2.4); NT PRO-BNP 8 pg/mL (<125); Potassium 4.1 mmol/L (3.5-5.1); Protein, Total 7.8 g/dL (6.4-8.2); Sodium Level 134 mmol/L (136-145); Troponin (Emerg Dept Use Only) < 0.02 ng/mL (0.0-0.045)
--- NOTE | 2019-03-21 21:44 | ER ---
Nurse's Notes [facility] Name: Obdulio Flynn Age: 34 yrs Sex: Male : 1985 Arrival Date: 03/21/2019 Time: 18:14 Bed 14 Private MD: Diagnosis: Other chest pain Presentation: 03/21 18:22 Presenting complaint: Patient states: LEFT CHEST PAIN RADIATING TO LUE x2 DAYS. bp Transition of care: patient was not received from another setting of care. Onset of symptoms was March 19, 2019. Risk Assessment: Do you want to hurt yourself or someone else? Patient reports no desire to harm self or others. Initial Sepsis Screen: Does the patient meet any 2 criteria? No. Patient's initial sepsis screen is negative. Does the patient have a suspected source of infection? No. Patient's initial sepsis screen is negative. Care prior to arrival: None. 18:22 Method Of Arrival: Ambulatory bp 18:22 Acuity: STAR 3 bp Triage Assessment: 18:24 General: Appears in no apparent distress. comfortable, Behavior is cooperative, bp appropriate for age, anxious. Pain: Complains of pain in chest. EENT: No deficits noted. Neuro: No deficits noted. Cardiovascular: Reports chest pain, Chest pain is described as mild, radiates to left arm(s) is aggravated by breathing. Respiratory: No deficits noted. GI: No signs and/or symptoms were reported involving the gastrointestinal system. : No signs and/or symptoms were reported regarding the genitourinary system. Derm: No deficits noted. Musculoskeletal: No deficits noted. Historical: - Allergies: 18:24 NKA; bp - Home Meds: 18:24 Synjardy 12.5-1,000 mg Oral tab 1 tab daily [Active]; bp - PMHx: 18:24 Diabetes - IDDM; Hypertension; Kidney stones; Pancreatitis; bp - Immunization history:: Adult Immunizations up to date. - Social history:: Smoking status: Patient uses tobacco products, denies chronic smoking, but will smoke occasionally. - Ebola Screening: : No symptoms or risks identified at this time. Screenin:15 Abuse screen: Denies threats or abuse. Nutritional screening: No deficits noted. ea Tuberculosis screening: No symptoms or risk factors identified. Fall Risk IV access (20 points). Assessment: 20:14 General: Appears in no apparent distress. Behavior is calm, cooperative, appropriate ea for age. Pain: Complains of pain in anterior aspect of left upper chest Pain currently is 6 out of 10 on a pain scale. Quality of pain is described as aching, Pain began 1 day ago. Neuro: Level of Consciousness is awake, alert, obeys commands, Oriented to person, place, time, situation. Cardiovascular: Patient's skin is warm and dry. Respiratory: Airway is patent Respiratory effort is even, unlabored, Respiratory pattern is regular, symmetrical. Derm: Skin is pink, warm \T\ dry. 21:29 Reassessment: Patient and/or family updated on plan of care and expected duration. Pain ea level reassessed. Patient is alert, oriented x 3, equal unlabored respirations, skin warm/dry/pink. awaiting on results. Patient states feeling better. 21:59 Reassessment: Patient and/or family updated on plan of care and expected duration. Pain ea level reassessed. Patient is alert, oriented x 3, equal unlabored respirations, skin warm/dry/pink. Discharge instruction given to patient, verbalized the understanding of instruction. Pt left ED ambulatory, tolerating well. Patient states feeling better. Patient states symptoms have improved. Vital Signs: 18:24 BP 110 / 67; Pulse 90; Resp 16; Temp 97.1; Pulse Ox 97% ; Weight 113.4 kg; Height 5 ft. bp 9 in. (175.26 cm); 19:55 BP 123 / 83; Pulse 82; Resp 18; Pulse Ox 100% on R/A; ea 20:00 BP 131 / 83; Pulse 82; Resp 18; Pulse Ox 100% on R/A; ea 21:00 BP 128 / 85; Pulse 75; Resp 18; Pulse Ox 96% on R/A; ea 18:24 Body Mass Index 36.92 (113.40 kg, 175.26 cm) bp ED Course: 18:14 Patient arrived in ED. mr 18:23 Triage completed. bp 18:24 Arm band placed on. bp 19:25 Johnny Iqbal PA is PHCP. jr8 19:25 Shaji Orozco MD is Attending Physician. jr8 19:42 XRAY Chest (1 view) In Process Unspecified. EDMS 19:52 Ballard, Carolin, RN is Primary Nurse. ea 20:00 Inserted saline lock: 20 gauge in right antecubital area, using aseptic technique. ea Blood collected. 20:16 Patient has correct armband on for positive identification. Bed in low position. Call ea light in reach. Side rails up X2. front desk monitor on. Pulse ox on. NIBP on. 20:16 Patient maintains SpO2 saturation greater than 95% on room air. ea 21:55 IV discontinued, intact, bleeding controlled, No redness/swelling at site. Pressure ea dressing applied. 22:00 No provider procedures requiring assistance completed. ea Administered Medications: 20:22 Drug: TORadol - Ketorolac 15 mg Route: IVP; Site: right antecubital; ea 21:00 Follow up: Response: No adverse reaction; Pain is decreased ea 20:23 Drug: Aspirin Chewable Tablet 324 mg Route: PO; ea 21:00 Follow up: Response: No adverse reaction ea Outcome: 21:44 Discharge ordered by MD. pyle 22:00 Discharged to home ambulatory. ea 22:00 Condition: improved 22:00 Discharge instructions given to patient, Instructed on discharge instructions, follow up and referral plans. medication usage, Demonstrated understanding of instructions, follow-up care, medications, Prescriptions given X 1. 22:01 Patient left the ED. ea Signatures: Dispatcher [employer] GEORGE FuJade Josh, PA PA jr8 Antunez, Elena, RN RN Juan Hartmann RN RN bp
--- NOTE | 2019-03-21 21:44 | EDPHYS ---
Physician Documentation [facility] Name: Obdulio Flynn Age: 34 yrs Sex: Male : 1985 Arrival Date: 03/21/2019 Time: 18:14 Bed 14 Private MD: ED Physician Shaji Orozco HPI: 03/21 20:17 This 34 yrs old Male presents to ER via Ambulatory with complaints of Chest jr8 Pain, Arm Pain. 20:17 The patient or guardian reports chest pain that is located primarily in the anterior jr8 chest wall, left. The pain radiates to the left arm, the left shoulder. Associated signs and symptoms: The patient has no apparent associated signs or symptoms. The chest pain is described as a pressure, sharp. Duration: The patient or guardian reports a single episode, that is still ongoing. Modifying factors: The symptoms are alleviated by nothing. the symptoms are aggravated by activity, movement, palpation of area. Severity of pain: At its worst the pain was moderate in the emergency department the pain has improved mildly. The patient has experienced a previous episode. The patient has not recently seen a physician. Historical: - Allergies: 18:24 NKA; bp - Home Meds: 18:24 Synjardy 12.5-1,000 mg Oral tab 1 tab daily [Active]; bp - PMHx: 18:24 Diabetes - IDDM; Hypertension; Kidney stones; Pancreatitis; bp - Immunization history:: Adult Immunizations up to date. - Social history:: Smoking status: Patient uses tobacco products, denies chronic smoking, but will smoke occasionally. - Ebola Screening: : No symptoms or risks identified at this time. ROS: 20:17 Eyes: Negative for injury, pain, redness, and discharge, ENT: Negative for injury, jr8 pain, and discharge, Neck: Negative for injury, pain, and swelling, Respiratory: Negative for shortness of breath, cough, wheezing, and pleuritic chest pain, Abdomen/GI: Negative for abdominal pain, nausea, vomiting, diarrhea, and constipation, Back: Negative for injury and pain, MS/Extremity: Negative for injury and deformity, Skin: Negative for injury, rash, and discoloration, Neuro: Negative for headache, weakness, numbness, tingling, and seizure. 20:17 Cardiovascular: Positive for chest pain, Negative for edema, orthopnea, palpitations, paroxysmal nocturnal dyspnea. Exam: 20:17 Eyes: Pupils equal round and reactive to light, extra-ocular motions intact. Lids and jr8 lashes normal. Conjunctiva and sclera are non-icteric and not injected. Cornea within normal limits. Periorbital areas with no swelling, redness, or edema. ENT: Nares patent. No nasal discharge, no septal abnormalities noted. Tympanic membranes are normal and external auditory canals are clear. Oropharynx with no redness, swelling, or masses, exudates, or evidence of obstruction, uvula midline. Mucous membranes moist. Neck: Trachea midline, no thyromegaly or masses palpated, and no cervical lymphadenopathy. Supple, full range of motion without nuchal rigidity, or vertebral point tenderness. No Meningismus. Cardiovascular: Regular rate and rhythm with a normal S1 and S2. No gallops, murmurs, or rubs. Normal PMI, no JVD. No pulse deficits. Respiratory: Lungs have equal breath sounds bilaterally, clear to auscultation and percussion. No rales, rhonchi or wheezes noted. No increased work of breathing, no retractions or nasal flaring. Abdomen/GI: Soft, non-tender, with normal bowel sounds. No distension or tympany. No guarding or rebound. No evidence of tenderness throughout. Back: No spinal tenderness. No costovertebral tenderness. Full range of motion. Skin: Warm, dry with normal turgor. Normal color with no rashes, no lesions, and no evidence of cellulitis. MS/ Extremity: Pulses equal, no cyanosis. Neurovascular intact. Full, normal range of motion. Neuro: Awake and alert, GCS 15, oriented to person, place, time, and situation. Cranial nerves II-XII grossly intact. Motor strength 5/5 in all extremities. Sensory grossly intact. Cerebellar exam normal. Normal gait. 20:17 Chest/axilla: Inspection: normal, Palpation: tenderness, that is moderate, of the left clavicle and anterior aspect of left upper chest, that partially reproduces the patient's complaints, Axilla: are normal. Vital Signs: 18:24 BP 110 / 67; Pulse 90; Resp 16; Temp 97.1; Pulse Ox 97% ; Weight 113.4 kg; Height 5 ft. bp 9 in. (175.26 cm); 19:55 BP 123 / 83; Pulse 82; Resp 18; Pulse Ox 100% on R/A; ea 20:00 BP 131 / 83; Pulse 82; Resp 18; Pulse Ox 100% on R/A; ea 21:00 BP 128 / 85; Pulse 75; Resp 18; Pulse Ox 96% on R/A; ea 18:24 Body Mass Index 36.92 (113.40 kg, 175.26 cm) bp MDM: 19:25 Patient medically screened. [facility] 21:43 Data reviewed: vital signs, nurses notes, lab test result(s), EKG, radiologic studies, [facility] plain films, and as a result, I will discharge patient. Data interpreted: Pulse oximetry: on room air is 96 %. Interpretation: normal. Counseling: I had a detailed discussion with the patient and/or guardian regarding: the historical points, exam findings, and any diagnostic results supporting the discharge/admit diagnosis, lab results, radiology results, the need for outpatient follow up, a family practitioner, to return to the emergency department if symptoms worsen or persist or if there are any questions or concerns that arise at home. Response to treatment: the patient's symptoms have markedly improved after treatment. 03/21 19:26 Order name: Basic Metabolic Panel; Complete Time: 21:43 [facility] 03/21 19:26 Order name: CBC with Diff; Complete Time: 20:42 [facility] 03/21 19:26 Order name: LFT's; Complete Time: :43 03/21 19:26 Order name: Magnesium; Complete Time: :43 [facility] 03/21 19:26 Order name: NT PRO-BNP; Complete Time: :43 [facility] 03/21 19:26 Order name: PT-INR; Complete Time: 20:42 [facility] 03/21 18:24 Order name: EKG; Complete Time: 18:25 03/21 18:24 Order name: EKG - Nurse/Tech; Complete Time: 18:25 03/21 19:26 Order name: Troponin (emerg Dept Use Only); Complete Time: 21:43 03/21 19:26 Order name: XRAY Chest (1 view); Complete Time: 20:09 [facility] 03/21 19:26 Order name: Cardiac monitoring; Complete Time: 20:11 03/21 19:26 Order name: IV Saline Lock; Complete Time: 20:11 8 03/21 19:26 Order name: Labs collected and sent; Complete Time: 20:11 8 03/21 19:26 Order name: O2 Per Protocol; Complete Time: 20:11 03/21 19:26 Order name: O2 Sat Monitoring; Complete Time: 20:11 Administered Medications: 20:22 Drug: TORadol - Ketorolac 15 mg Route: IVP; Site: right antecubital; ea 21:00 Follow up: Response: No adverse reaction; Pain is decreased ea 20:23 Drug: Aspirin Chewable Tablet 324 mg Route: PO; ea 21:00 Follow up: Response: No adverse reaction ea Disposition: 03/22 02:06 Co-signature as Attending Physician, Shaji Orozco MD. Disposition: 03/21/19 21:44 Discharged to Home. Impression: Other chest pain. - Condition is Stable. - Discharge Instructions: Nonspecific Chest Pain, Chest Wall Pain. - Prescriptions for Ibuprofen 800 mg Oral Tablet - take 1 tablet by ORAL route every 8 hours As needed take with food; 30 tablet. - Medication Reconciliation Form, Thank You Letter, Antibiotic Education, Prescription Opioid Use, Work release form form. - Follow up: Private Physician; When: 2 - 3 days; Reason: Recheck today's complaints, Continuance of care, Re-evaluation by your physician. - Problem is new. - Symptoms have improved. Signatures: Dispatcher [employer] EDMS Bambi Bustillos RN RN ss Roszak, Josh, PA PA jr8 Carolin Ballard RN RN ea Starr, Gregory, MD MD Juan Rodríguez RN RN bp Corrections: (The following items were deleted from the chart) 03/21 22:01 21:44 03/21/2019 21:44 Discharged to Home. Impression: Other chest pain. Condition is ea Stable. Forms are Medication Reconciliation Form, Thank You Letter, Antibiotic Education, Prescription Opioid Use. Follow up: Private Physician; When: 2 - 3 days; Reason: Recheck today's complaints, Continuance of care, Re-evaluation by your physician. Problem is new. Symptoms have improved. jr8
[2019-03-21 22:22] VITALS: TEMP 97.1
[2019-03-21 22:27] VITALS: BP 128/85; O2SAT 96
--- NOTE | 2019-03-22 12:11 | EKG ---
Test Date: 2019-03-21 Test Time: 18:30:44 Medical Staff Assistant: LOS MEASUREMENT RESULTS: Intervals: Rate: 86 DC: 122 QRSD: 82 QT: 344 QTc: 411 [place]: P: 20 DC: 122 QRS: -21 T: 9 INTERPRETIVE STATEMENTS: Normal sinus rhythm Minimal voltage criteria for LVH, may be normal variant Borderline ECG Compared to ECG 12/13/2017 15:04:28 No significant changes Electronically Signed On 03-22-19 12:10:21 CDT by Abran Zavaleta
== END 2019-03-21 22:01 | disposition home or self-care (01) ==
LOC: ER 18:05
DX: R07.89 Other chest pain (principal); E11.9 Type 2 diabetes mellitus without complications; I10 Essential (primary) hypertension; Z79.4 Long term (current) use of insulin; Z72.0 Tobacco use
CPT/HCPCS: 36415; 71045; 80048; 80076; 83735; 83880; 84484; 85025; 85610; 93005; 96374; 99285

== ENCOUNTER 2019-12-31 11:44 | Emergency (ER) | payer BC ==
--- OUTSIDE RECORDS SUMMARY | 2019-12-31 11:46 | XMS REPORT ---
:1985 Author Organization [facility] Care Team Providers Name Role Phone Ayad Moreno Provider Role Unavailable Allergies, Adverse Reactions, Alerts Substance Reaction Event Type N.K.D.A. Info Not Available Non Drug Allergy Problems Problem Type Condition Code Onset Dates Condition Status Assessment Type 2 diabetes mellitus with other E11.69 Active specified complication, unspecified whether turner in insulin use Problem Erectile dysfunction, unspecified N52.9 Active erectile dysfunction type Problem Mixed hyperlipidemia E78.2 Active Problem Erectile dysfunction, unspecified N52.9 Active erectile dysfunction type Problem Type 2 diabetes mellitus with other E11.29 Active diabetic kidney complication Problem Type 2 diabetes mellitus with other E11.69 Active specified complication, unspecified whether turner in insulin use Problem History of stent insertion of renal Z98.890 Active artery Problem Adult BMI 36.0-36.9 kg/sq m Z68.36 Active Problem HTN, goal below 130/80 I10 Active Assessment Type 2 diabetes mellitus with other E11.29 Active diabetic kidney complication Assessment Adult BMI 36.0-36.9 kg/sq m Z68.36 Active Assessment Noncompliance w/medication Z91.14 Active treatment due to intermit use of medication Assessment Erectile dysfunction, unspecified N52.9 Active erectile dysfunction type Assessment Proteinuria, unspecified R80.9 Active Assessment Tobacco use disorder F17.200 Active Assessment Mixed hyperlipidemia E78.2 Active Assessment History of stent insertion of renal Z98.890 Active artery Assessment HTN, goal below 130/80 I10 Active Medications Medication Code Code Instructions Start End Status Dosage System Date Date Lisinopril [facility] 10452309474 10 MG Orally Active 1 tablet Once a day Victoza [facility] 00168363017 18 MG/3ML December Active inject 1.8 Subcutaneous 02, mg/day Once a day 2019 Fenofibrate [facility] 97253260671 145 MG Orally Active 1 tablet Once a day Atorvastatin [facility] 41038240793 10 MG Orally Inactive 1 tablet Calcium Once a day Basaglar [facility] [address]-32 Active not defined KwikPen Tadalafil NDC 66404441319 5 mg Orally December Active take 1 Once a day , tablet by 2019 mouth every day Synjardy XR [facility] 10942806522 12.5-1000 MG December Active 2 tablets Orally Once a , with day 2019 breakfast Simvastatin [facility] 22021336499 10 MG Orally Oct 06, Active 1 tablet in Once a day 2019 the evening Results No Known Results Summary Purpose eClinicalWorks Submission
--- OUTSIDE RECORDS SUMMARY | 2019-12-31 11:46 | XMS REPORT ---
:1985 Author Organization [employer] Care Team Providers Name Role Phone Ayad Moreno Provider Role Unavailable Allergies No Known Allergies Problems Problem Type Condition Code Onset Dates Condition Status Assessment HTN, goal below 130/80 I10 Active Problem Erectile dysfunction, unspecified N52.9 Active erectile dysfunction type Assessment Type 2 diabetes mellitus with other E11.69 Active specified complication, unspecified whether longterm insulin use Problem Mixed hyperlipidemia E78.2 Active Problem Erectile dysfunction, unspecified N52.9 Active erectile dysfunction type Problem Type 2 diabetes mellitus with other E11.29 Active diabetic kidney complication Problem Type 2 diabetes mellitus with other E11.69 Active specified complication, unspecified whether longterm insulin use Problem History of stent insertion of renal Z98.890 Active artery Problem Adult BMI 36.0-36.9 kg/sq m Z68.36 Active Problem HTN, goal below 130/80 I10 Active Medications Medication Code Code Instructions Start End Date Status Dosage System Date Ozempic (0.25 [facility] 58350871187 2 MG/1.5ML Oct 19December Active 0.25mg or 0.5 Subcutaneous once 2019 once a MG/DOSE) a week week x4wks then 0.5mg once a week Pen [place] [facility] 29293978542 31G X 8 MM Oct 19 1 needle 5/16" subcutaneously 2019 with pen once a week syringe Lisinopril [facility] 62312394179 5 mg Inactive TAKE 1 TABLET BY MOUTH EVERY DAY Victoza [facility] 05600353351 18 MG/3ML Inactive inject Subcutaneous Once 1.8 a day mg/day Results No Known Results Summary Purpose eClinicalWorks Submission
--- OUTSIDE RECORDS SUMMARY | 2019-12-31 11:46 | XMS REPORT ---
:1985 Author Organization [employer] Care Team Providers Name Role Phone Ayad Moreno Provider Role Unavailable Allergies, Adverse Reactions, Alerts Substance Reaction Event Type N.K.D.A. Info Not Available Non Drug Allergy Problems Problem Type Condition Code Onset Dates Condition Status Assessment Type 2 diabetes mellitus with other E11.69 Active specified complication, unspecified whether termite control service representative insulin use Problem Erectile dysfunction, unspecified N52.9 Active erectile dysfunction type Problem Mixed hyperlipidemia E78.2 Active Problem Erectile dysfunction, unspecified N52.9 Active erectile dysfunction type Problem Type 2 diabetes mellitus with other E11.29 Active diabetic kidney complication Problem Type 2 diabetes mellitus with other E11.69 Active specified complication, unspecified whether termite control service representative insulin use Problem History of stent insertion [...] Start End Status Dosage System Date Date Pen [place] [facility] 52050823110 31G X 8 MM Oct 19, Active 1 needle 5/16" subcutaneously 2019 with pen once a week syringe Tadalafil [facility] 38220930275 5 mg Orally Once Active take 1 a day tablet by mouth every day Synjardy XR [facility] 21641285342 12.5-1000 MG Active 2 tablets Orally Once a with day breakfast Victoza [facility] 46738359872 18 MG/3ML Inactive inject 1.8 Subcutaneous mg/day Once a day Atorvastatin [facility] 01900691671 10 MG Orally Inactive 1 tablet Calcium Once a day Ozempic (0.25 [facility] 68724568247 2 MG/1.5ML Oct 19December Inactive 0.25mg once or 0.5 MG/DOSE) Subcutaneous 2019 11, a week once a week 2019 x4wks then 0.5mg once a week Fenofibrate [facility] 73072828872 145 MG Orally Active 1 tablet Once a day Lisinopril [facility] 23687354430 10 MG Orally Active 1 tablet Once a day Ozempic (1 [facility] 74599571207 2 MG/1.5ML DecemberMarch 04, Active Inject 1 mg MG/DOSE) Subcutaneous 2019 Once a week 2019 Simvastatin [facility] 87601995260 20 MG Orally Active 1 tablet in Once a day the evening Results No Known Results Summary Purpose eClinicalWorks Submission
--- OUTSIDE RECORDS SUMMARY | 2019-12-31 11:46 | XMS REPORT ---
:1985 Author Organization e[employer] Care Team Providers Name Role Phone Ayad Moreno Provider Role Unavailable Allergies No Known Allergies Problems Problem Type Condition Code Onset Dates Condition Status Assessment Erectile dysfunction, unspecified N52.9 Active erectile dysfunction type Problem Erectile dysfunction, unspecified N52.9 Active erectile dysfunction type Problem Mixed hyperlipidemia E78.2 Active Problem Erectile dysfunction, unspecified N52.9 Active erectile dysfunction type Problem Type 2 diabetes mellitus with other E11.29 Active diabetic kidney complication Problem Type 2 diabetes mellitus with other E11.69 Active specified complication, unspecified whether jail insulin use Problem History of stent insertion of renal Z98.890 Active artery Problem Adult BMI 36.0-36.9 kg/sq m Z68.36 Active Problem HTN, goal below 130/80 I10 Active Medications Medication Code System Code Instructions Start End Date Status Dosage Date Tadalafil [facility] 26820195694 5 mg Orally Once Nov 18, Active take 1 a day 2019 tablet by mouth every day Results No Known Results Summary Purpose eClinicalWorks Submission
[2019-12-31] MEDS ORDERED: NA CHLORIDE 0.9% 2,000 ML ONE (12:14)
[2019-12-31 12:27] LABS: Absolute Lymphocytes (CBC) 2.1 K/uL (0.7-4.9); Basophils % 0.8 % (0-1.3); Hematocrit 43.4 % (39.6-49.0); MPV 8.3 fL (7.6-11.3); RBC Red Blood Cell Count 5.31 M/uL (4.33-5.43)
[2019-12-31 12:28] LABS: Protime INR 1.01
[2019-12-31 12:45] LABS: ALT/SGPT 21 U/L (12-78); AST/SGOT 13 U/L (15-37); Albumin 3.3 g/dL (3.4-5.0); Alkaline Phosphatase 77 U/L (45-117); BUN Blood Urea Nitrogen 12 mg/dL (7-18); Bicarbonate 23 mmol/L (21-32); Bilirubin Direct 0.1 mg/dL (0-0.2); Bilirubin Total 0.3 mg/dL (0.2-1.0); Glucose Level 257 mg/dL (74-106); Lipase 115 U/L (73-393); Magnesium 1.9 mg/dL (1.8-2.4); NT PRO-BNP 7 pg/mL (<125); Potassium 3.9 mmol/L (3.5-5.1); Protein, Total 7.7 g/dL (6.4-8.2); Sodium Level 137 mmol/L (136-145); Troponin (Emerg Dept Use Only) < 0.02 ng/mL (0.0-0.045)
--- NOTE | 2019-12-31 12:49 | RAD REPORT ---
EXAM DESCRIPTION: RAD - Chest Single View - 12/31/2019 12:41 pm CLINICAL HISTORY: COUGH Chest pain. COMPARISON: Chest Single View dated 03/21/2019; Chest Single View dated 12/13/2017; Chest Single View dated 11/28/2017; Abdomen 1 View (KUB) dated 04/16/2016 FINDINGS: Portable technique limits examination quality. The lungs are grossly clear. The heart is normal in size. No displaced fractures. IMPRESSION: No acute intrathoracic process suspected.
[2019-12-31 13:30] LABS: Urine Blood NEGATIVE (NEG); Urine Glucose 2+ (NEG); Urine Protein 3+ (NEG); Urine pH 5.5 (5.0-7.0)
[2019-12-31] MEDS ORDERED: NA CHLORIDE 0.9% 1,000 ML ONE (13:40)
--- NOTE | 2019-12-31 13:53 | ER ---
Nurse's Notes [facility] Name: Obdulio Flynn Age: 34 yrs Sex: Male : 1985 Arrival Date: 12/31/2019 Time: 11:46 Bed 19 Private MD: Ayad Moreno Diagnosis: Volume depletion;Type 1 diabetes mellitus;Hypotension Presentation: 12/30 11:53 Chief complaint: Patient states: "I was working on my breaks about an hour ago and ss everything got really bright. I took my blood pressure and it was like 80's/ 60's." Pt reports feeling better, but still feels a little fatigued. Coronavirus screen: Patient denies fever greater than 100.4F, cough, shortness of breath, or difficulty breathing. Proceed with normal triage process. Ebola Screen: Patient denies exposure to infectious person. Patient denies travel to an Ebola-affected area in the 21 days before illness onset. Initial Sepsis Screen: Does the patient meet any 2 criteria? HR > 90 bpm. Does the patient have a suspected source of infection? No. Patient's initial sepsis screen is negative. Risk Assessment: Do you want to hurt yourself or someone else? Patient reports no desire to harm self or others. 11:53 Method Of Arrival: Ambulatory ss 11:53 Acuity: STAR 3 ss Historical: - Allergies: 11:54 NKA; ss - PMHx: 11:54 Diabetes - IDDM; Hypertension; Kidney stones; Pancreatitis; ss - PSHx: 11:54 Cholecystectomy; ss - Immunization history:: Adult Immunizations up to date. - Social history:: Smoking status: Patient reports the use of cigarette tobacco products, denies chronic smoking, but will smoke occasionally. - Family history:: not pertinent. Screenin:10 Abuse screen: Denies threats or abuse. Denies injuries from another. Nutritional hb screening: No deficits noted. Tuberculosis screening: No symptoms or risk factors identified. Fall Risk None identified. Assessment: 12:10 General: Appears in no apparent distress. Behavior is calm, cooperative, appropriate hb for age. Pain: Denies pain. Neuro: Level of Consciousness is awake, alert, obeys commands, Oriented to person, place, time, situation, Reports dizziness. Cardiovascular: Capillary refill < 3 seconds Patient's skin is warm and dry. Respiratory: Airway is patent Respiratory effort is even, unlabored, Respiratory pattern is regular, symmetrical. GI: No signs and/or symptoms were reported involving the gastrointestinal system. : No signs and/or symptoms were reported regarding the genitourinary system. EENT: No signs and/or symptoms were reported regarding the EENT system. Derm: Skin is pink, warm \\T\\ dry. Musculoskeletal: No signs and/or symptoms reported regarding the musculoskeletal system. 12:58 Reassessment: Patient appears in no apparent distress at this time. Patient and/or hb family updated on plan of care and expected duration. Pain level reassessed. Patient is alert, oriented x 3, equal unlabored respirations, skin warm/dry/pink. 13:55 Reassessment: FSBS 127. ae4 13:59 Reassessment: Patient and/or family updated on plan of care and expected duration. Pain ae4 level reassessed. IV fluids still infusing, will continue to monitor. Patient states feeling better. Patient states symptoms have improved. Vital Signs: 11:53 BP 111 / 78; Pulse 108; Resp 15; Temp 97.9(TE); Pulse Ox 100% on R/A; Weight 108.86 kg; ss Height 5 ft. 9 in. (175.26 cm); Pain 0/10; 12:58 BP 105 / 81; Pulse 93; Resp 15; Pulse Ox 99% on R/A; hb 13:45 BP 114 / 76 Supine; Pulse 86; jb1 13:45 BP 114 / 81 Sitting; Pulse 89; jb1 13:45 BP 114 / 79 Standing; Pulse 91; jb1 14:04 BP 108 / 79; Pulse 84; Resp 17; Pulse Ox 100% on R/A; ae4 11:53 Body Mass Index 35.44 (108.86 kg, 175.26 cm) ED Course: 11:46 Patient arrived in ED. mr 11:46 Ayad Moreno, is Private Physician. mr 11:47 Uvalod Moeller MD is Attending Physician. [facility] 11:54 Triage completed. ss 11:54 Arm band placed on right wrist. ss 12:08 Mattie Garay, RN is Primary Nurse. hb 12:20 Inserted saline lock: 20 gauge in right antecubital area, using aseptic technique. hb Blood collected. 12:33 Patient has correct armband on for positive identification. Bed in low position. Call light in reach. Side rails up X 1. 12:42 XRAY Chest (1 view) In Process Unspecified. EDMS 13:25 EKG done, by ED staff, reviewed by Mattie Garay RN. jb1 13:50 No provider procedures requiring assistance completed. IV discontinued, intact, ae4 bleeding controlled, No redness/swelling at site. Pressure dressing applied. 13:51 Ayad Moreno DO is Referral Physician. sandra Administered Medications: 12:20 Drug: NS 0.9% 1000 ml Route: IV; Rate: 1 bolus; Site: right antecubital; hb 12:20 Drug: NS 0.9% 1000 ml Route: IV; Rate: 1 bolus; Site: right antecubital; hb 13:52 Drug: NS 0.9% 1000 ml Route: IV; Rate: 1 bolus; Site: right antecubital; ae4 Outcome: 13:50 Discharged to home ambulatory, with steady gait. ae4 13:50 Condition: improved 13:50 Instructed on discharge instructions, follow up and referral plans. Demonstrated understanding of instructions. 13:52 Discharge ordered by . sandra 14:37 Patient left the ED. ae4 Signatures: Dispatcher [employer] EDMS Pito Martinez jb1 Uvaldo Moeller MD MD cha Rivera, Bambi Clemens, Mattie Hanson RN, DOT RN Brendan Garcia RN RN ae4
--- NOTE | 2019-12-31 13:53 | EDPHYS ---
Physician Documentation [facility] Name: Obdulio Flynn Age: 34 yrs Sex: Male : 1985 Arrival Date: 12/31/2019 Time: 11:46 Bed 19 Private MD: Josh [facility] ED Physician Uvaldo Moeller HPI: 12/30 12:08 This 34 yrs old Male presents to ER via Ambulatory with complaints of Blood sandra Pressure Problem. 12:08 dizzy and hypotention. The patient presents with feeling faint, generalized weakness, sandra lightheadedness. Onset: The symptoms/episode began/occurred just prior to arrival, this morning. Context: occurred at home. Modifying factors: The symptoms are alleviated by lying down, the symptoms are aggravated by standing up. Associated signs and symptoms: The patient has no apparent associated signs or symptoms. Severity of symptoms: At their worst the symptoms were mild in the emergency department the symptoms have improved mildly. Patient's baseline: Neuro: alert and fully oriented. Historical: - Allergies: 11:54 NKA; ss - PMHx: 11:54 Diabetes - IDDM; Hypertension; Kidney stones; Pancreatitis; ss - PSHx: 11:54 Cholecystectomy; ss - Immunization history:: Adult Immunizations up to date. - Social history:: Smoking status: Patient reports the use of cigarette tobacco products, denies chronic smoking, but will smoke occasionally. - Family history:: not pertinent. ROS: 12:08 Constitutional: Negative for fever, chills, and weight loss, Eyes: Negative for injury, sandra pain, redness, and discharge, ENT: Negative for injury, pain, and discharge, Neck: Negative for injury, pain, and swelling, Cardiovascular: Negative for chest pain, palpitations, and edema, Respiratory: Negative for shortness of breath, cough, wheezing, and pleuritic chest pain, Abdomen/GI: Negative for abdominal pain, nausea, vomiting, diarrhea, and constipation, Back: Negative for injury and pain, : Negative for injury, bleeding, discharge, and swelling, MS/Extremity: Negative for injury and deformity, Skin: Negative for injury, rash, and discoloration, Psych: Negative for depression, anxiety, suicide ideation, homicidal ideation, and hallucinations, Allergy/Immunology: Negative for hives, rash, and allergies, Endocrine: Negative for neck swelling, polydipsia, polyuria, polyphagia, and marked weight changes, Hematologic/Lymphatic: Negative for swollen nodes, abnormal bleeding, and unusual bruising. 12:08 Neuro: Positive for dizziness, near syncope, weakness. Exam: 12:08 Constitutional: This is a well developed, well nourished patient who is awake, alert, sandra and in no acute distress. Head/Face: Normocephalic, atraumatic. Eyes: Pupils equal round and reactive to light, extra-ocular motions intact. Lids and lashes normal. Conjunctiva and sclera are non-icteric and not injected. Cornea within normal limits. Periorbital areas with no swelling, redness, or edema. ENT: Nares patent. No nasal discharge, no septal abnormalities noted. Tympanic membranes are normal and external auditory canals are clear. Oropharynx with no redness, swelling, or masses, exudates, or evidence of obstruction, uvula midline. Mucous membranes moist. Neck: Trachea midline, no thyromegaly or masses palpated, and no cervical lymphadenopathy. Supple, full range of motion without nuchal rigidity, or vertebral point tenderness. No Meningismus. Chest/axilla: Normal chest wall appearance and motion. Nontender with no deformity. No lesions are appreciated. Cardiovascular: Regular rate and rhythm with a normal S1 and S2. No gallops, murmurs, or rubs. Normal PMI, no JVD. No pulse deficits. Respiratory: Lungs have equal breath sounds bilaterally, clear to auscultation and percussion. No rales, rhonchi or wheezes noted. No increased work of breathing, no retractions or nasal flaring. Abdomen/GI: Soft, non-tender, with normal bowel sounds. No distension or tympany. No guarding or rebound. No evidence of tenderness throughout. Back: No spinal tenderness. No costovertebral tenderness. Full range of motion. Male : Normal genitalia with no discharge or lesions. Skin: Warm, dry with normal turgor. Normal color with no rashes, no lesions, and no evidence of cellulitis. MS/ Extremity: Pulses equal, no cyanosis. Neurovascular intact. Full, normal range of motion. Neuro: Awake and alert, GCS 15, oriented to person, place, time, and situation. Cranial nerves II-XII grossly intact. Motor strength 5/5 in all extremities. Sensory grossly intact. Cerebellar exam normal. Normal gait. Psych: Awake, alert, with orientation to person, place and time. Behavior, mood, and affect are within normal limits. Vital Signs: 11:53 BP 111 / 78; Pulse 108; Resp 15; Temp 97.9(TE); Pulse Ox 100% on R/A; Weight 108.86 kg; ss Height 5 ft. 9 in. (175.26 cm); Pain 0/10; 12:58 BP 105 / 81; Pulse 93; Resp 15; Pulse Ox 99% on R/A; hb 13:45 BP 114 / 76 Supine; Pulse 86; jb1 13:45 BP 114 / 81 Sitting; Pulse 89; jb1 13:45 BP 114 / 79 Standing; Pulse 91; jb1 14:04 BP 108 / 79; Pulse 84; Resp 17; Pulse Ox 100% on R/A; ae4 11:53 Body Mass Index 35.44 (108.86 kg, 175.26 cm) ss MDM: 11:47 Patient medically screened. [facility] 12:10 Data reviewed: vital signs, nurses notes, lab test result(s), EKG, radiologic studies, sandra plain films. 12/30 12:07 Order name: Basic Metabolic Panel [facility] 12/30 12:07 Order name: CBC with Diff; Complete Time: 13:21 sandra 12/30 12:07 Order name: LFT's; Complete Time: 13:21 sandra 12/30 12:07 Order name: Magnesium; Complete Time: 13:21 [facility] 12/30 12:07 Order name: NT PRO-BNP; Complete Time: 13:21 [facility] 12/30 12:07 Order name: PT-INR; Complete Time: 13:21 [facility] 12/30 12:07 Order name: Troponin (emerg Dept Use Only); Complete Time: 13:21 [facility] 12/30 12:07 Order name: XRAY Chest (1 view); Complete Time: 13:21 sandra 12/30 12:07 Order name: Lipase; Complete Time: 13:21 sandra 12/30 12:08 Order name: Basic Metabolic Panel; Complete Time: 13:21 EDMS 12/30 12:08 Order name: Glucose, Ancillary Testing; Complete Time: 12:33 EDMS 12/30 13:15 Order name: Urine Dipstick--Ancillary (enter results); Complete Time: 13:51 ms 12/30 12:07 Order name: EKG; Complete Time: 12:08 [facility] 12/30 12:07 Order name: Cardiac monitoring; Complete Time: 12:32 [facility] 12/30 12:07 Order name: EKG - Nurse/Tech; Complete Time: 12:32 [facility] 12/30 12:07 Order name: IV Saline Lock; Complete Time: 12: [facility] 12/30 12:07 Order name: Labs collected and sent; Complete Time: 12: [facility] 12/30 12:07 Order name: O2 Per Protocol; Complete Time: 12: [facility] 12/30 12:07 Order name: O2 Sat Monitoring; Complete Time: 12: [facility] 12/30 12:07 Order name: Urine Dipstick-Ancillary (obtain specimen); Complete Time: 13:10 [facility] 12/30 13:22 Order name: Orthostatics; Complete Time: 13:45 [facility] Administered Medications: 12:20 Drug: NS 0.9% 1000 ml Route: IV; Rate: 1 bolus; Site: right antecubital; hb 12:20 Drug: NS 0.9% 1000 ml Route: IV; Rate: 1 bolus; Site: right antecubital; hb 13:52 Drug: NS 0.9% 1000 ml Route: IV; Rate: 1 bolus; Site: right antecubital; ae4 Disposition: 12/31/19 13:52 Discharged to Home. Impression: Volume depletion, Type 1 diabetes mellitus, Hypotension. - Condition is Stable. - Discharge Instructions: Dehydration, Adult, Type 1 Diabetes Mellitus, Diagnosis, Adult, Diabetes Mellitus and Food, Dehydration, Adult, [id number], Type 1 Diabetes Mellitus, Self Care, Adult, Type 1 Diabetes Mellitus, Diagnosis, Adult, Zikh-ov-Wfos, Type 1 Diabetes Mellitus, Self Care, Adult, [id number]. - Medication Reconciliation Form, Thank You Letter, Antibiotic Education, Prescription Opioid Use form. - Follow up: Ayad Moreno; When: 2 - 3 days; Reason: Recheck today's complaints, Continuance of care, Re-evaluation by your physician. - Problem is new. - Symptoms have improved. Signatures: Dispatcher [employer] Uvaldo Torres MD MD cha Smirch, Shelby, RN RN ss Baxter, Heather, RN RN Brendan Ruiz RN RN ae4 Corrections: (The following items were deleted from the chart) 14:37 13:52 12/31/2019 13:52 Discharged to Home. Impression: Volume depletion; Type 1 ae4 diabetes mellitus; Hypotension. Condition is Stable. Discharge Instructions: Type 1 Diabetes Mellitus, Diagnosis, Adult, Diabetes Mellitus and Food, Type 1 Diabetes Mellitus, Self Care, Adult, Type 1 Diabetes Mellitus, Diagnosis, Adult, [id number], Type 1 Diabetes Mellitus, Self Care, Adult, [id number]-[id number]. Forms are Medication Reconciliation Form, Thank You Letter, Antibiotic Education, Prescription Opioid Use. Follow up: Ayad Moreno; When: 2 - 3 days; Reason: Recheck today's complaints, Continuance of care, Re-evaluation by your physician. Problem is new. Symptoms have improved. sandra
[2019-12-31 15:02] VITALS: O2SAT 100
[2019-12-31 15:31] VITALS: BP 122/82; TEMP 97.8
--- NOTE | 2020-01-01 09:18 | EKG ---
Test Date: 2019-12-31 Test Time: 13:06:23 Water Chaser: MERLE MEASUREMENT RESULTS: Intervals: Rate: 87 MS: 134 QRSD: 88 QT: 334 QTc: 401 [place]: P: 23 MS: 134 QRS: -12 T: 15 INTERPRETIVE STATEMENTS: Normal sinus rhythm Cannot rule out Anterior infarct, age undetermined Abnormal ECG Compared to ECG 03/21/2019 18:30:44 Myocardial infarct finding now present Left ventricular hypertrophy no longer present Electronically Signed On 01-01-20 09:16:32 CDT by Abran Zavaleta
== END 2019-12-31 14:37 | disposition home or self-care (01) ==
LOC: ER 11:44
DX: E86.9 Volume depletion, unspecified (principal); I95.9 Hypotension, unspecified; E10.9 Type 1 diabetes mellitus without complications; I10 Essential (primary) hypertension; F17.210 Nicotine dependence, cigarettes, uncomplicated
CPT/HCPCS: 93005; 85025; 80048; 36415; 83735; 85610; 82947 ×2; 80076; 81003; 84484; 83690; 83880; 71045; 99284; J7030 ×2

== ENCOUNTER 2022-06-02 00:13 | Emergency (ER) | payer BC ==
--- OUTSIDE RECORDS SUMMARY | 2022-06-02 00:17 | XMS REPORT | Continuity of Care Document ---
:1985 Author Organization [facility] t Address [address] [place] [address] Care Team Providers Name Role Phone Evin Mccurdy MD Primary Care Physician Ayad Moreno Attending Clinician Unavailable Problems Condition Condition Condition Status Onset Resolution Last Treating Co mments Source Name Details Category Date Date Treatment Clinician Date Chest pain Chest pain Disease Active 0 [facility]: [facility]osp[facility] l Allergies, Adverse Reactions, Alerts This patient has no known allergies or adverse reactions. Family History Family Member Diagnosis Comments Start Date Stop Date Source [facility] Natural mother [facility] Social History Social Habit Start Date Stop Date Quantity Comments Source History of Light tobacco [facility] tobacco use smoker [facility] Alcohol intake 2018-01-11 2018-01-11 Current drinker of [facility] 00:[facility] 00:00:00 alcohol (finding) Hospita l Tobacco use and 2017-12-07 2017-12-07 Smokeless tobacco [facility] exposure 00:00:00 00:00:00 non-user Hospital Alcohol Comment 2017-12-07 2017-12-07 occassional Methodis t 00:00:00 00:00:00 Hospital Sex Ass[birth year] At [birth year] [facility] 00:00:00 00:00:00 Hospital Smoking Status Start Date Stop Date Source Light tobacco smoker 2017-12-07 00:00:00 [facility] Medications Ordered Filled Start Stop Current Ordering Indication Dosage Frequency Signature Comments Components Source Medication Medication Date Date Medication? Clinician (SIG) Name Name Joshua (1 Ozdinaic (1 2020- No Ayad 1 mg Common MG/DOSE) MG/DOSE) 12-04 Moreno Spiri t 00:00: 00:00 - [facility] 00 :00 [facility] Pen [place] Pen [place] Yes Ayad 1 needle Common 02/17" 02/17" 15 Moreno with pen Spirit 00:00: syringe - [facility] 00 [facility] INSULIN Yes 50U QD Inject 50 Metho di GLARGINE,HU 3-[address] M[address]REC.ANLOG 16:19: under the H ospita (BASAGLAR 14 skin l KWIKPEN nightly. U-100 INSULIN SUBQ) empaglifloz Yes 1000mg QD Take 1,000 Methodi in-metformi 3-[address] n 16:19: mouth Hospita (SYNJARDY) 14 daily. l 5-1,000 mg tablet lisinopril Yes 5mg QD Take 5 mg Me [facility] (PRINIVIL,Z 3-[address] ESTRIL) 5 16:19: daily. Hospit a mg tablet 14 l fenofibrate Yes 145mg QD Take 145 M ethodi (TRICOR) 3-[address] 145 MG 16:19: mouth Hospita tablet 14 daily. l Synjardy XR Synjardy XR Yes Ayad 2 tablets Common Moreno with Spirit breakfast [facility] Fenofibrate Fenofibrate Yes Ayad 1 tablet Common Moreno Spirit [facility] Lisinopril Lisinopril Yes Ayad 1 tablet Common Moreno [facility] Simvastatin Simvastatin Yes Ayad 1 tablet Common Moreno in the Spirit evening [facility] Tadalafil Tadalafil 2020 No Ayad take 1 Common 02-14 Moreno tablet by Spirit 00:00 mouth - CHI :00 every day [facility] Procedures This patient has no known procedures. Plan of Care Planned Activity Planned Date Details Comments Source Future Scheduled 2022-05-24 HEPATITIS B [facility] Test 00:25:16 VACCINES (1 of 3 - 3-dose series) [code = HEPATITIS B VACCINES (1 of 3 - 3-dose series)] Future Scheduled 2022-05-24 COVID-19 VACCINE [facility] Hospital Test 00:25:16 (#1) [code = COVID-19 VACCINE (#1)] Future Scheduled 2022-05-24 INFLUENZA VACCINE Method [facility] Test 00:25:16 [code = INFLUENZA VACCINE] Encounters Start End Encounter Admission Attending Care Care Encounter Source Date/Time Date/Time Type Type Clinicians Facility Department ID 2021-10-30 Outpatient Moreno, [facility] [id number] Common 14:33:19 Ayad [facility] 2021-10-30 Outpatient Moreno, [facility] [id number] Common 14:23:26 Ayad [id number] [facility] 2021-10-30 Out[facility], [facility] [id number] Common 13:29:02 Ayad [id number] [facility] 2021-10-30 Outpatient Moreno, [facility] [id number] Common 13:28:50 Ayad [id number] [facility] 2021-10-30 Outpatient Moreno, [facility] [id number] Common 12:54:02 Ayad [id number] [facility] 2021-10-30 Outpatient Moreno, [facility] [id number] Common 12:36:14 Ayad [id number] [facility] 2021-10-30 Outpatient Moreno, [facility] [id number] Common 12:23:57 Ayad [id number] [facility] 2021-10-30 Outpatient Moreno, [facility] [id number] Common 11:00:54 Ayad [id number] [facility] 2021-10-30 Outpatient Moreno, [facility] [id number] Common 10:57:35 Ayad [id number] [facility] 2022-05-23 2022-05-23 ambulatory [facility] [id number] Common 00:00:00 00:00:00 [facility] 2021-12-17 2021-12-17 ambulatory [facility] [id number] Common 00:00:00 00:00:00 [facility] 2021-11-15 2021-11-15 ambulatory [facility] [id number] Common 00:00:00 00:00:00 [facility] 2021-09-16 2021-09-16 ambulatory [facility] [id number] Common 00:00:00 00:00:00 [facility] 2021-08-19 2021-08-19 ambulatory [facility] [id number] Common 00:00:00 00:00:00 [facility] 2021-08-14 2021-08-14 ambulatory [facility] [id number] Common 00:00:00 00:00:00 [facility] 2021-07-08 2021-07-08 Outpatient [facility] [id number] Common 00:00:00 00:00:00 [facility] 2021-07-04 2021-07-04 Outpatient [facility] [id number] Common 00:00:00 00:00:00 [facility] 2021-01-23 2021-01-23 Outpatient [facility] [id number] Common 00:00:00 00:00:00 [facility] 2020-10-25 2020-10-25 Outpatient [facility] [id number] Common 00:00:00 00:00:00 [facility] 2020-10-08 2020-10-08 Outpatient [facility] [id number] Common 00:00:00 00:00:00 [facility] 2020-03-06 2020-03-06 [id number] Common 08:30:00 08:30:00 [employer] [address] [facility] 2019-12-05 2019-12-05 [facility] [id number] Common 14:30:00 14:30:[address] [facility] 2019-10-19 2019-10-19 [facility] [id number] Common 15:19:00 15:19:[address] [facility] 2019-10-17 2019-10-17 [facility] [id number] Common 15:50:00 15:50:[address] [facility] 2019-10-06 2019-10-06 [facility] [id number] Common 13:45:00 13:45:[address] [facility] Results This patient has no known results.
--- NOTE | 2022-06-02 00:33 | EDPHYS ---
Physician Documentation [facility] Name: Obdulio Flynn Age: 37 yrs Sex: Male : 1985 Arrival Date: 06/02/2022 Time: 00:16 Bed Waiting Private MD: ED Physician Juan Carlos Guerra HPI: 06/02 00:42 This 37 yrs old Male presents to ER via Unassigned with complaints of Ear Pain.kb 00:42 The patient presents with pain, moderate. The complaints affect the left ear. Onset: kb The symptoms/episode began/occurred 3 day(s) ago. Modifying factors: The symptoms are alleviated by nothing, the symptoms are aggravated by nothing. Associated signs and symptoms: The patient has no apparent associated signs or symptoms. Severity of symptoms: At their worst the symptoms were moderate in the emergency department the symptoms are unchanged. The patient has not experienced similar symptoms in the past. The patient has not recently seen a physician. Patient reports left ear pain that started on Thursday. States the pain is progressively getting worse.. Historical: - Allergies: 00:47 NKA; bb - Immunization history:: unknown. - Social history:: Smoking status: unknown. ROS: 00:41 Constitutional: Negative for fever, chills, and weight loss. kb 00:41 ENT: Positive for ear pain. 00:41 All other systems are negative. Exam: 00:41 Constitutional: This is a well developed, well nourished patient who is awake, alert, kb and in no acute distress. Head/Face: Normocephalic, atraumatic. Cardiovascular: Regular rate and rhythm with a normal S1 and S2. No gallops, murmurs, or rubs. No pulse deficits. Respiratory: Respirations even and unlabored. No increased work of breathing. Talking in full sentences Skin: Warm, dry with normal turgor. Normal color. MS/ Extremity: Pulses equal, no cyanosis. Neurovascular intact. Full, normal range of motion. Neuro: Awake and alert, GCS 15, oriented to person, place, time, and situation. Moves all extremities. Normal gait. Psych: Awake, alert, with orientation to person, place and time. Behavior, mood, and affect are within normal limits. 00:41 ENT: External ear(s): are unremarkable, Ear canal(s): are normal, TM's: erythema, that is marked, on the left, Nose: is normal, Mouth: is normal. Vital Signs: 00:46 BP 134 / 80; Pulse 113; Resp 16 S; Temp 97.5(TE); Pulse Ox 99% on R/A; Weight 111.13 kg bb (R); Height 5 ft. 9 in. (175.26 cm) (R); Pain 5/10; 00:46 Body Mass Index 36.18 (111.13 kg, 175.26 cm) bb MDM: 00:28 Patient medically screened. kb 00:41 Data reviewed: vital signs, nurses notes. Data interpreted: Pulse oximetry: on room air kb is 100 %. Interpretation: normal. Counseling: I had a detailed discussion with the patient and/or guardian regarding: the historical points, exam findings, and any diagnostic results supporting the discharge/admit diagnosis, the need for outpatient follow up, a family practitioner, to return to the emergency department if symptoms worsen or persist or if there are any questions or concerns that arise at home. Administered Medications: 00:45 Drug: Augmentin (Amoxicillin-Clavulanate) 875 mg Route: PO; bb 00:49 Follow up: Response: Medication administered at discharge. bb 00:45 Drug: Ibuprofen 800 mg Route: PO; bb 00:49 Follow up: Response: Medication administered at discharge. bb Disposition: 02:02 Co-signature as Attending Physician, Juan Carlos Guerra MD I agree with the assessment and kdr plan of care. Disposition Summary: 06/02/22 00:32 Discharge Ordered Location: Home kb Condition: Stable kb Diagnosis - Otitis media, unspecified, left ear kb Followup: kb - With: Emergency Department - When: As needed - Reason: Worsening of condition Followup: kb - With: Private Physician - When: 2 - 3 days - Reason: Recheck today's complaints, Continuance of care, Re-evaluation by your physician Discharge Instructions: - Discharge Summary Sheet kb - Otitis Media, Adult, [id number] kb Forms: - Medication Reconciliation Form kb - Thank You Letter kb - Antibiotic Education kb - Prescription Opioid Use kb Prescriptions: - Amoxicillin 875 mg Oral Tablet - take 1 tablet by ORAL route every 12 hours for 10 days; 20 tablet; Refills: 0, kb Product Selection Permitted Signatures: Ramonita Colmenares FNP-C FNP-Ckb Juan Carlos Guerra MD MD kdr Merline Cochran, RN RN bb
[2022-06-02] MEDS ORDERED: AMOX/K CLAV 875 MG TAB ONE (00:48)
--- NOTE | 2022-06-02 00:50 | ER ---
Nurse's Notes [facility] Name: Obdulio Flynn Age: 37 yrs Sex: Male : 1985 Arrival Date: 06/02/2022 Time: 00:16 Bed Waiting Private MD: Diagnosis: Otitis media, unspecified, left ear Presentation: 06/02 00:46 Chief complaint: Patient states: he has been having left ear pain since Thursday causing bb him not to be able to sleep. Coronavirus screen: At this time, the client does not indicate any symptoms associated with coronavirus-19. Ebola Screen: No symptoms or risks identified at this time. Initial Sepsis Screen: Does the patient meet any 2 criteria? No. Patient's initial sepsis screen is negative. Does the patient have a suspected source of infection? No. Patient's initial sepsis screen is negative. Risk Assessment: Do you want to hurt yourself or someone else? Patient reports no desire to harm self or others. Onset of symptoms was May 30, 2022. 00:46 Method Of Arrival: Ambulatory bb 00:46 Acuity: STAR 5 bb Triage Assessment: 00:47 General: Appears in no apparent distress. uncomfortable, Behavior is calm, cooperative. bb Pain: Complains of pain in left ear Pain currently is 5 out of 10 on a pain scale. EENT: Reports pain in left ear. Neuro: Level of Consciousness is awake, alert, obeys commands, Oriented to person, place, time, situation. Cardiovascular: No deficits noted. Respiratory: Airway is patent Respiratory effort is even, unlabored. GI: No signs and/or symptoms were reported involving the gastrointestinal system. Derm: Skin is pink, warm \T\ dry. Musculoskeletal: Circulation, motion, and sensation intact. Historical: - Allergies: 00:47 NKA; bb - Immunization history:: unknown. - Social history:: Smoking status: unknown. Vital Signs: 00:46 BP 134 / 80; Pulse 113; Resp 16 S; Temp 97.5(TE); Pulse Ox 99% on R/A; Weight 111.13 kg bb (R); Height 5 ft. 9 in. (175.26 cm) (R); Pain 5/10; 00:46 Body Mass Index 36.18 (111.13 kg, 175.26 cm) bb ED Course: 00:16 Patient arrived in ED. ja2 00:28 Ramon[facility] Colmenares [facility]C [facility] kb 00:28 Juan Carlos Guerra MD is Attending Physician. kb 00:47 Triage completed. bb 00:47 Arm band placed on pt seen by ED provider and discharged from triage. bb Administered Medications: 00:45 Drug: Augmentin (Amoxicillin-Clavulanate) 875 mg Route: PO; bb 00:49 Follow up: Response: Medication administered at discharge. bb 00:45 Drug: Ibuprofen 800 mg Route: PO; bb 00:49 Follow up: Response: Medication administered at discharge. bb Outcome: 00:32 Discharge ordered by MD. kb 00:49 Discharged to home ambulatory. bb 00:49 Condition: stable 00:49 Discharge instructions given to patient, Instructed on discharge instructions, follow up and referral plans. medication usage, Demonstrated understanding of instructions, follow-up care, medications, Prescriptions given X 1. 00:50 Patient left the ED. bb Signatures: Ramonita Colmenares FNP-C FNP-Ckb Ballard, Brenda, RN RN Mary Jane Harris2
[2022-06-02] MEDS ORDERED: IBUPROFEN 400 MG TAB ONE (00:52)
[2022-06-02 02:28] VITALS: BP 134/80; TEMP 97.5; O2SAT 99
== END 2022-06-02 00:50 | disposition home or self-care (01) ==
LOC: ER 00:13
DX: H66.92 Otitis media, unspecified, left ear (principal)
CPT/HCPCS: 99283

== ENCOUNTER 2022-06-13 21:56 | Emergency (ER) | payer BC ==
--- OUTSIDE RECORDS SUMMARY | 2022-06-13 21:59 | XMS REPORT | Continuity of Care Document ---
:1985 Author Organization [facility] t Address [address] [place] [address] Care Team Providers Name Role Phone Evin [...] Comments Start Date Stop Date Source Natural father [facility] Natural mother [facility] Social History Social Habit Start Date Stop Date Quantity Comments Source History of Light tobacco [facility] Alcohol intake 2018-01-11 2018-01-11 [facility] 00:[facility]00 alcohol (finding) Hospita l Tobacco use and 2017-12-07 2017-12-07 Smokeless tobacco [facility] exposure 00:00:00 00:00:00 non-user Hospital Alcohol Comment 2017-12-07 2017-12-07 occassional [facility] t 00:00:00 00:00:00 Hospital Sex Assigned At [birth year] [facility] 00:00:00 [facility]:00:00 Hospital Smoking Status Start Date Stop Date Source Light tobacco smoker 2017-12-07 00:00:00 [facility] Medications Ordered Filled Start Stop Current Ordering Indication Dosage Frequency Signature Comments Components Source Medication Medication Date Date Medication? Clinician (SIG) Name Name Joshua (1 Ozempic (1 2020- No Ayad 1 mg Common MG/DOSE) MG/DOSE) 12-04 [facility] 00:[facility]: 00:00 - [facility] 00 :00 [facility] Pen [place] Yes Ayad 1 needle Common 02/17" 02/17" 10-19 [facility] with pen Spirit 00:00: syringe - [facility] 00 [facility] INSULIN 2017-0 Yes 50U QD Inject 50 Metho di GLARGINE,HU 3-[address] M.REC.ANLOG 16:19: under the H ospita (BASAGLAR 14 skin l KWIKPEN nightly. U-100 INSULIN SUBQ) empaglifloz 2018-0 Yes 1000mg QD Take 1,000 Methodi in-metformi 3-[address] n 16:19: mouth Hospita (SYNJARDY) 14 daily. l 5-1,000 mg tablet lisinopril 2018-0 Yes 5mg QD Take 5 mg Me th[facility] (PRINIVIL,Z 3-[address] ESTRIL) 5 16:19: daily. Hospit a mg tablet 14 l INSULIN 2018-0 Yes 50U QD Inject 50 Metho di GLARGINE,HU 3-[address] M.REC.ANLOG 16:19: under the H ospita (BASAGLAR 14 skin l KWIKPEN nightly. U-100 INSULIN SUBQ) fenofibrate 2018-0 Yes 145mg QD Take 145 M ethodi (TRICOR) 3-[address] 145 MG 16:19: mouth Hospita tablet 14 daily. l empaglifloz 2018-0 Yes 1000mg QD Take 1,000 Methodi in-metformi 3-[address] n 16:19: mouth Hospita (SYNJARDY) 14 daily. l 5-1,000 mg tablet lisinopril 2018-0 Yes 5mg QD Take 5 mg Me thodi (PRINIVIL,Z 3-[address] ESTRIL) 5 16:19: daily. Hospit a mg tablet 14 l fenofibrate 2017-0 Yes 145mg QD Take 145 M ethodi (TRICOR) 3-[address] 145 MG 16:19: mouth Hospita tablet 14 daily. l Synjardy XR Synjardy XR Yes Ayad 2 tablets Common [facility] with Spirit breakfast [facility] Fenofibrate Fenofibrate Yes Ayad 1 tablet Common [facility] Lisinopril Lisinopril Yes Ayad 1 tablet Common [facility] Simvastatin Simvastatin Yes Ayad 1 tablet Common [facility] in the [facility] evening [facility] Tadalafil Tadalafil 2020- No Ayad take 1 Common 02-14 [facility] tablet by Spirit 00:00 mouth - CHI :00 every day [facility] Procedures This patient has no known procedures. Plan of Care Planned Activity Planned Date Details Comments Source Future Scheduled 2022-06-05 HEPATITIS B [facility] Test 22:29:50 VACCINES (1 of 3 - 3-dose series) [code = HEPATITIS B VACCINES (1 of 3 - 3-dose series)] Future Scheduled 2022-06-05 COVID-19 VACCINE Methodi [facility] Test 22:29:50 (#1) [code = COVID-19 VACCINE (#1)] Future Scheduled 2022-06-[address] [facility] Test 22:29:50 [code = INFLUENZA VACCINE] Future Scheduled 2022-05-[address] [facility] Test 00:25:16 [code = INFLUENZA VACCINE] Future Scheduled 2022-05-24 HEPATITIS B [facility] Test 00:25:16 VACCINES (1 of 3 - 3-dose series) [code = HEPATITIS B VACCINES (1 of 3 - 3-dose series)] Future Scheduled 2022-05-24 COVID-19 VACCINE Methodi [facility] Test 00:25:16 (#1) [code = COVID-19 VACCINE (#1)] Encounters Start End Encounter Admission Attending Care Care Encounter Source Date/Time Date/Time Type Type Clinicians Facility Department ID 2021-10-30 Outpatient [facility], [facility] [id number] Common 14:33:19 Ayad [facility] 2021-10-30 Outpatient Moreno, [facility] [id number] Common 14:23:26 Ayad [id number] [facility] 2021-10-30 Outpatient Moreno, [facility] [id number] Common 13:29:02 Ayad [id number] [facility] 2021-10-30 Outpatient Moreno, STLMLC ST[facility] [id number] Common 13:28:50 Ayad [id number] [facility] 2021-10-30 Outpatient Moreno, STLMLC STL[facility] [id number] Common 12:54:02 Ayad [id number] [facility] 2021-10-30 Outpatient [facility]no, STLMLC ST[facility] [id number] Common 12:36:14 Ayad [id number] [facility] 2021-10-30 Outpatient [facility]no, STLMLC STLMLC [id number] Common 12:23:57 Ayad [id number] [facility] 2021-10-30 Outpatient [facility]no, STLMLC STL[facility]C [id number] Common 11:00:54 Ayad [id number] [facility] 2021-10-30 Outpatient [facility]no, STLMLC STLMLC [id number] Common 10:57:35 Ayad [id number] [facility] 2022-05-23 2022-05-23 ambulatory [facility]LMLC ST[facility] [id number] Common 00:00:00 00:00:00 [facility] 2021-12-17 2021-12-17 ambulatory STLMLC STL[facility]C [id number] Common 00:00:00 00:00:00 [facility] 2021-11-15 2021-11-15 ambulatory STLMLC STL[facility]C [id number] Common 00:00:00 00:00:00 [facility] 2021-09-16 2021-09-16 ambulatory STLMLC STLMLC [id number] Common 00:00:00 00:00:00 [facility] 2021-08-19 2021-08-19 ambulatory STLMLC STLMLC [id number] Common 00:00:00 00:00:00 [facility] 2021-08-142021-08-14 ambulatory STLMLC STLMLC [id number] Common 00:00:00 00:00:00 [facility] 2021-07-08 2021-07-08 Outpatient STLMLC STLMLC [id number] Common 00:00:00 00:00:00 [facility] 2021-07-04 2021-07-04 Outpatient STLMLC STLMLC [id number] Common 00:00:00 00:00:00 [facility] 2021-01-23 2021-01-23 Outpatient STLMLC STL[facility]C [id number] Common 00:00:00 00:00:00 [facility] 2020-10-25 2020-10-25 Outpatient STLMLC STLMLC [id number] Common 00:00:00 00:00:00 [facility] 2020-10-08 2020-10-08 Outpatient STLMLC STLMLC [id number] Common 00:00:00 00:00:00 [facility] 2020-03-06 2020-03-06 [id number] Common 08:30:00 08:30:[address] [facility] 2019-12-05 2019-12-05 [facility] [id number] Common 14:30:00 14:30:[address] [facility] 2019-10-19 2019-10-19 [facility] [id number] Common 15:19:00 15:19:[address] [facility] 2019-10-17 2019-10-17 [facility] [id number] Common 15:50:00 15:50:[address] [facility] 2019-10-06 2019-10-06 [facility] [id number] Common 13:45:00 13:45:[address] [facility] Results This patient has no known results.
[2022-06-13] MEDS ORDERED: predniSONE 20 MG TAB ONE (22:37)
[2022-06-13] MEDS ORDERED: FAMOTIDINE 20 MG TAB ONE (22:37)
[2022-06-13] MEDS ORDERED: ACYCLOVIR 400 MG TABLET ONE (22:39)
--- NOTE | 2022-06-14 01:07 | ER ---
Nurse's Notes [facility] Name: Obdulio Flynn Age: 37 yrs Sex: Male : 1985 Arrival Date: 06/13/2022 Time: 22:02 Bed 17 Private MD: Diagnosis: Ricardo's palsy;Acute serous otitis media, left ear Presentation: 06/13 22:04 Chief complaint: Patient states: I came in two weeks ago for an ear infection and they 7 gave me antibiotics. Two days ago the pain started coming pain and spreading to my face. Coronavirus screen: Client presents with at least one sign or symptom that may indicate coronavirus-19. Standard/surgical mask placed on the client. Ebola Screen: No symptoms or risks identified at this time. Initial Sepsis Screen: Does the patient meet any 2 criteria? No. Patient's initial sepsis screen is negative. Does the patient have a suspected source of infection? No. Patient's initial sepsis screen is negative. Risk Assessment: Do you want to hurt yourself or someone else? Patient reports no desire to harm self or others. Onset of symptoms is unknown. 22:04 Method Of Arrival: Ambulatory 7 22:04 Acuity: STAR 3 bm7 Triage Assessment: 22:05 General: Appears in no apparent distress. uncomfortable, Behavior is calm, cooperative, bm7 appropriate for age. Pain: Complains of pain in left ear. EENT: Ear canal clear on left ear Reports pain in left ear. Neuro: Level of Consciousness is awake, alert, obeys commands, Oriented to person, place, time, situation. Cardiovascular: No deficits noted. Respiratory: No deficits noted. GI: No deficits noted. No signs and/or symptoms were reported involving the gastrointestinal system. : No deficits noted. No signs and/or symptoms were reported regarding the genitourinary system. Derm: No deficits noted. No signs and/or symptoms reported regarding the dermatologic system. Musculoskeletal: No deficits noted. No signs and/or symptoms reported regarding the musculoskeletal system. 22:09 Neuro: Facial droop on left, Numbness in face. bm7 Historical: - Allergies: 22:05 NKA; bm7 - Home Meds: 22:05 Synjardy 12.5-1,000 mg Oral tab 1 tab daily [Active]; bm7 - PMHx: 22:05 Diabetes - IDDM; Hypertension; Kidney stones; Pancreatitis; bm7 - PSHx: 22:05 Cholecystectomy; bm7 - Immunization history:: Adult Immunizations up to date, Client reports having NOT received the Covid vaccine. - Social history:: Smoking status: Patient denies any tobacco usage or history of. Screenin:54 Abuse screen: Denies threats or abuse. Denies injuries from another. Nutritional hb screening: No deficits noted. Tuberculosis screening: No symptoms or risk factors identified. Fall Risk None identified. Assessment: 22:52 General: SEE TRIAGE ASSESSMENT. hb 22:53 Reassessment: Patient appears in no apparent distress at this time. Patient and/or hb family updated on plan of care and expected duration. Pain level reassessed. Patient is alert, oriented x 3, equal unlabored respirations, skin warm/dry/pink. Vital Signs: 22:09 BP 139 / 96; Pulse 73; Resp 16; Temp 97.2(TE); Pulse Ox 100% on R/A; Weight 113.4 kg bm7 (R); Height 5 ft. 9 in. (175.26 cm); Pain 10/10; 22:09 Body Mass Index 36.92 (113.40 kg, 175.26 cm) bm7 ED Course: 22:02 Patient arrived in ED. ja2 22:03 Vanessa Camarena FNP-C [facility]. snw 22:03 Noman Wade MD is Attending Physician. snw 22:05 Triage completed. bm7 22:05 Arm band placed on right wrist. bm7 22:40 Mattie Garay, RN is Primary Nurse. hb 22:54 Patient has correct armband on for positive identification. hb 23:28 CT Head Brain wo Cont In Process Unspecified. EDMS Administered Medications: 22:55 Drug: predniSONE 40 mg Route: PO; bm7 23:30 Follow up: Response: No adverse reaction hb 22:55 Drug: Pepcid (famotidine) 20 mg Route: PO; bm7 23:30 Follow up: Response: No adverse reaction hb 22:55 Not Given (Physician Discretion): valACYclovir 1000 mg PO once bm7 22:55 Drug: Acyclovir 800 mg Route: PO; bm7 23:29 Follow up: Response: No adverse reaction hb 06/14 01:21 Drug: Ketorolac 60 mg Route: IM; Site: right ventrogluteal; ja4 Medication: 06/13 23:29 VIS not applicable for this client. Outcome: 06/14 01:06 Discharge ordered by . ivana 01:21 Discharged to home ambulatory. gisela 01:21 Condition: stable 01:21 Discharge instructions given to patient, Instructed on discharge instructions, follow up and referral plans. medication usage, Demonstrated understanding of instructions, follow-up care, medications, Prescriptions given X 3. 01:22 Patient left the ED. geo4 Signatures: Dispatcher [employer] EDMS Vanessa Camarena, PIN ATTACHER-C PIN ATTACHER-Csnw Mattie Garay RN RN Yue Stone RN RN [email or web address] Mary Jane Saenz Jeremy, RN RN ja4 Corrections: (The following items were deleted from the chart) 06/13 22:07 22:04 Acuity: STAR 4 bm7 bm7
--- NOTE | 2022-06-14 01:07 | EDPHYS ---
Physician Documentation [facility] Name: Obdulio Flynn Age: 37 yrs Sex: Male : 1985 Arrival Date: 06/13/2022 Time: 22:02 Bed 17 Private MD: ED Physician Noman Wade HPI: 06/13 22:17 This 37 yrs old Male presents to ER via Ambulatory with complaints of Ear snw Pain, Numbness Of Face. 22:17 The patient presents with a fullness, pain, tenderness to bone behind ear on left. The snw complaints affect the left ear and left occipital area. Onset: The symptoms/episode began/occurred gradually. Associated signs and symptoms: Pertinent positives: pt took abx for OM 2 weeks ago, got better, left ear with pain again 3 days ago and this am pt unable to control face on the left. Severity of symptoms: At their worst the symptoms were moderate. The patient has not experienced similar symptoms in the past. as noted. Historical: - Allergies: 22:05 NKA; bm7 - Home Meds: 22:05 Synjardy 12.5-1,000 mg Oral tab 1 tab daily [Active]; bm7 - PMHx: 22:05 Diabetes - IDDM; Hypertension; Kidney stones; Pancreatitis; bm7 - PSHx: 22:05 Cholecystectomy; bm7 - Immunization history:: Adult Immunizations up to date, Client reports having NOT received the Covid vaccine. - Social history:: Smoking status: Patient denies any tobacco usage or history of. ROS: 22:15 Eyes: Negative for injury, pain, redness, and discharge. snw 22:15 Neck: Negative for injury, pain, and swelling, Cardiovascular: Negative for chest pain, palpitations, and edema, Respiratory: Negative for shortness of breath, cough, wheezing, and pleuritic chest pain, Abdomen/GI: Negative for abdominal pain, nausea, vomiting, diarrhea, and constipation, Back: Negative for injury and pain, : Negative for injury, bleeding, discharge, and swelling, MS/Extremity: Negative for injury and deformity, Skin: Negative for injury, rash, and discoloration, Neuro: Negative for headache, weakness, numbness, tingling, except to left face, and negative for seizure, Psych: Negative for depression, anxiety, suicide ideation, homicidal ideation, and hallucinations. 22:15 Constitutional: Positive for poor PO intake. 22:15 ENT: Positive for left ear pain, pt states this am, when he brushed his teeth, the water ran out of his mouth on the left. Pt states throughout the day the left face became less and less controllable. Exam: 22:13 Constitutional: The patient appears alert, awake, well developed, well hydrated, well snw groomed, obese. 22:13 Head/face: Noted is no obvious of injury or deformity except left facial paralysis. 22:13 Eyes: delayed blink in left eye. 22:13 ENT: External ear(s): are unremarkable, Ear canal(s): are normal, TM's: erythema, that is mild, on the left, +mastoid tenderness, Nose: is normal, Posterior pharynx: is normal, Voice: is normal. 06/14 01:07 Neck: Trachea midline, no thyromegaly or masses palpated, and no cervical snw lymphadenopathy. Supple, full range of motion without nuchal rigidity, or vertebral point tenderness. No Meningismus. Chest/axilla: Normal chest wall appearance and motion. Nontender with no deformity. No lesions are appreciated. Cardiovascular: Regular rate and rhythm with a normal S1 and S2. No gallops, murmurs, or rubs. Normal PMI, no JVD. No pulse deficits. Respiratory: Lungs have equal breath sounds bilaterally, clear to auscultation and percussion. No rales, rhonchi or wheezes noted. No increased work of breathing, no retractions or nasal flaring. Abdomen/GI: Soft, non-tender, with normal bowel sounds. No distension or tympany. No guarding or rebound. No evidence of tenderness throughout. Back: No spinal tenderness. No costovertebral tenderness. Full range of motion. Skin: Warm, dry with normal turgor. Normal color with no rashes, no lesions, and no evidence of cellulitis. MS/ Extremity: Pulses equal, no cyanosis. Neurovascular intact. Full, normal range of motion. Neuro: Awake and alert, GCS 15, oriented to person, place, time, and situation. Cranial nerves II-XII grossly intact. Motor strength 5/5 in all extremities. Sensory grossly intact. Cerebellar exam normal. Normal gait. Vital Signs: 06/13 22:09 BP 139 / 96; Pulse 73; Resp 16; Temp 97.2(TE); Pulse Ox 100% on R/A; Weight 113.4 kg bm7 (R); Height 5 ft. 9 in. (175.26 cm); Pain 07/14; 22:09 Body Mass Index 36.92 (113.40 kg, 175.26 cm) bm7 MDM: 22:03 Patient medically screened. snw 06/14 01:03 Data reviewed: vital signs, nurses notes. Data interpreted: Pulse oximetry: on room air snw is 100 %. Interpretation: normal. Counseling: I had a detailed discussion with the patient and/or guardian regarding: the historical points, exam findings, and any diagnostic results supporting the discharge/admit diagnosis, the presence of at least one elevated blood pressure reading (>120/80) during this emergency department visit, lab results, radiology results, the need for outpatient follow up, to return to the emergency department if symptoms worsen or persist or if there are any questions or concerns that arise at home. Special discussion: Based on the history and exam findings, there is no indication for further emergent testing or inpatient evaluation. I discussed with the patient/guardian the need to see the primary care provider for further evaluation of the symptoms. 06/13 22:13 Order name: CT Head Brain wo Cont snw Administered Medications: 06/13 22:55 Drug: predniSONE 40 mg Route: PO; bm7 23:30 Follow up: Response: No adverse reaction hb 22:55 Drug: Pepcid (famotidine) 20 mg Route: PO; bm7 23:30 Follow up: Response: No adverse reaction hb 22:55 Not Given (Physician Discretion): valACYclovir 1000 mg PO once bm7 22:55 Drug: Acyclovir 800 mg Route: PO; bm7 23:29 Follow up: Response: No adverse reaction hb 06/14 01:21 Drug: Ketorolac 60 mg Route: IM; Site: right ventrogluteal; ja4 Disposition: 06:09 Co-signature as Attending Physician, Noman Wade MD. rn Disposition Summary: 06/14/22 01:06 Discharge Ordered Location: Home snw Condition: Stable snw Diagnosis - Ricardo's palsy snw - Acute serous otitis media, left ear snw Followup: snw - With: Emergency Department - When: As needed - Reason: Worsening of condition Followup: snw - With: Private Physician - When: 2 - 3 days - Reason: Recheck today's complaints, Continuance of care, Re-evaluation by your physician Discharge Instructions: - Discharge Summary Sheet snw - Ricardo Palsy, Adult snw - Otitis Media, Adult snw - Dry Eye snw Forms: - Medication Reconciliation Form snw - Thank You Letter snw - Antibiotic Education snw - Prescription Opioid Use snw Prescriptions: - valacyclovir 1 gram Oral tablet - take 1 tablet by ORAL route every 8 hours for 7 days; 21 tablet; Refills: 0, snw Product Selection Permitted - Pepcid 20 mg Oral Tablet - take 1 tablet by ORAL route every 12 hours for 10 days; 20 tablet; Refills: 0, snw Product Selection Permitted - Zyrtec 10 mg Oral Tablet - take 1 tablet by ORAL route once daily As needed; 20 tablet; Refills: 0, snw Product Selection Permitted Signatures: Dispatcher [employer] EDMS Vanessa Camarena, AUDIO VISUAL DESIGN ENGINEER-C AUDIO VISUAL DESIGN ENGINEER-Csnw Noman Wade MD MD rn McCarthy, Brittany RN RN [email or web address] Renato Nur RN RN Mattie Bowman RN
[2022-06-14] MEDS ORDERED: KETOROLAC 30 MG/ML INJ ONE (01:23)
[2022-06-14 07:33] VITALS: BP 139/96; TEMP 97.2; O2SAT 100
--- NOTE | 2022-06-15 17:16 | RAD REPORT ---
EXAM DESCRIPTION: CT - Head Brain Wo Cont - 06/14/2022 6:43 am CLINICAL HISTORY: 37-year-old male with mastoiditis. COMPARISON: None. TECHNIQUE: CT brain without contrast. This exam was performed according to our departmental dose opt imization program which includes use of automated exposure control, adjustment of the mA and/or kV ac cording to patient size and/or use of iterative reconstruction technique. FINDINGS: The ventricles, sulci, and cisterns are within normal limits. The crandall-white matter diff erentiation is preserved. There is no mass effect, midline shift, intra- or extra-axial fluid colle ction/acute hemorrhage. The osseous structures are unremarkable. The paranasal sinuses and mastoi d air cells are clear. IMPRESSION: 1. No acute intracranial abnormalities. 2. The bilateral mastoid air cells, middle ear cavity and external auditory canal are clear. Electronically signed by: Adeline Mac MD 06/14/2022 12:42 AM CDT Due to temporary technical issues with the PACS/Fluency reporting system, reports are being signed by the in house radiologists without review as a courtesy to insure prompt reporting. The interpreting radiologist is fully responsible for the content of the report.
== END 2022-06-14 01:22 | disposition home or self-care (01) ==
LOC: ER 21:56
DX: H65.02 Acute serous otitis media, left ear (principal); G51.0 Bell's palsy; E11.9 Type 2 diabetes mellitus without complications; I10 Essential (primary) hypertension
CPT/HCPCS: 70450; 96372; 99283; J7512